=== PATIENT | female | born 1995 | race Caucasian/White ===

== ENCOUNTER 2024-07-02 00:23 | Emergency (ER) | payer SELFPAY ==
--- NOTE | ~2024-07-02 | CT_ITS ---
Non-contrast CT scan of the Abdomen and Pelvis Clinical indication: Right flank pain Technique: 2.5 mm axial scans were obtained through the abdomen and pelvis without intravenous or or al contrast. Dose reduction technique was used on this scan by utilizing automated exposure control a nd iterative reconstruction technique. The dose-length product (DLP) was 291.79 mGy-cm. Findings: Images through the lung bases reveal no abnormalities. There are small bilateral nonobstructing renal stones, largest in the right kidney measuring 2 mm. Th ere is a 3.5 mm right UVJ stone, with mild right hydroureteronephrosis. No left ureteral stone or lef t hydronephrosis. The liver, spleen, pancreas, and adrenals appear normal.. Cholecystectomy clips are present. There is no aortic aneurysm. There is no evidence of bowel obstruction. Images through the pelvis were performed. There is no evidence of ascites or lymphadenopathy. Urinary bladder otherwise unremarkable. No pelvic mass seen. Impression: 3.5 mm right UVJ stone, with mild right hydroureteronephrosis. Additional small bilateral nonobstructing renal stones, as above. Reviewed, dictated and finalized at location M. Impression: 3.5 mm right UVJ stone, with mild right hydroureteronephrosis. Additional small bilateral nonobstructing renal stones, as above.
[2024-07-02 00:26] VITALS: BP 190/87; PULSE 58; RESP 18; TEMP 36.9; O2SAT 98
[2024-07-02 01:12] LABS: Basophils Percent Auto 0.3 % (0.2-1.2); Eosinophils Absolute Auto 0.1 K/mm3 (0-0.3); Hematocrit 42.3 % (37.0-47.0); Immature Granulocyte Absolute 0.05 K/mm3 (0.00-0.031); Immature Granulocyte Percent A 0.4 % (0-0.5); Lymphocytes Percent Auto 18.2 % (18.3-44.2); Mean Corpuscular HGB Conc 35.5 g/dl (32-36); Mean Corpuscular Hemoglobin 32.5 pg (26-34); Mean Corpuscular Volume 91.8 fl (80-100); Mean Platelet Volume 10.5 fl (7.4-10.4); Monocytes Absolute Auto 0.9 K/mm3 (0.1-0.6); Monocytes Percent Auto 6.1 % (2.6-8.5); Neutrophils Absolute Auto 10.6 K/mm3 (1.3-6.7); Platelet Count Result 315 k/mm3 (150-375); Red Blood Count 4.61 M/mm3 (4.2-5.4); Red Cell Distribution Width 12.9 % (11.5-14.5); White Blood Count 14.3 K/mm3 (4.5-10.0)
[2024-07-02 01:24] LABS: Alanine Aminotransferase 63 U/L (6-35); Albumin Level 4.3 g/dL (3.5-5.1); Alkaline Phosphatase 67 U/L (38-126); Anion Gap 12 mmol/L (4-12); Aspartate Amino Transferase 36 U/L (14-36); Bilirubin,Total 0.7 mg/dL (0.2-1.3); Blood Urea Nitrogen 9 mg/dL (7-17); Carbon Dioxide 22 mmol/L (22-30); Chloride 101 mmol/L (98-107); Estimated CRCL calculation 91 ml/min; Estimated Glomerular Filt Rate > 60; Glucose 139 mg/dL (65-110); Potassium 3.6 mmol/L (3.4-5.0); Sodium 135 mmol/L (137-145)
[2024-07-02] MEDS: ONDANSETRON INJ 4 MG/2 ML VIAL IV PUSH (01:31)
[2024-07-02] MEDS: MORPHINE SULFATE (*CRX) 4 MG/ML INJ IV PUSH (01:32)
[2024-07-02] MEDS: SODIUM CHLORIDE 0.9% IV 1,000 ML 999 ML IV CONT (01:33)
--- NOTE | 2024-07-02 01:34 | PC.NURSE ---
Patient ripped out IV due to pain.
--- NOTE | 2024-07-02 01:44 | ED.BACK ---
HPI - Back Pain/Injury General Chief Complaint: Back Pain/Injury <JENA Day Last Filed: 07/02/24 02:35> Stated Complaint: back pain <JENA Day Last Filed: 07/02/24 02:35> Time Seen by Provider: 07/02/24 01:22 <JENA Day Last Filed: 07/02/24 02:35> Source: patient <JENA Day Last Filed: 07/02/24 02:35> Mode of arrival: ambulatory <JENA Day Last Filed: 07/02/24 02:35> Limitations: no limitations <JENA Day Last Filed: 07/02/24 02:35> History of Present Illness HPI Narrative: Patient is a 29-year-old female who presents the ED with report of right flank pain. Patient reports pain began earlier today but has progressively worsened throughout the day. She states she is unable to bear the pain at this time. She has not taken anything for the pain. Pain does radiate around to right lower abdomen slightly. Denies history of similar pain. Denies history of kidney stones. Has had previous cholecystectomy. Reports nausea, vomiting. Denies fevers, dysuria, hematuria. <JENA Day Last Filed: 07/02/24 02:35> Related Data Allergies/Adverse Reactions: Allergies Allergy/AdvReac Type Severity Reaction Status Date / Time ciprofloxacin Allergy Unknown Verified 09/29/16 14:58 <JENA Day Last Filed: 07/02/24 02:35> Review of Systems Review of Systems: All systems reviewed & are unremarkable except as noted in HPI. <JENA Day Last Filed: 07/02/24 02:35> All systems reviewed & are unremarkable except as noted in HPI and below <JENA Day Last Filed: 07/02/24 02:35> [facility] Family History Family History: Family History Mother Asthma <Sushma Bojorquez PA-C - Last Filed: 07/02/24 02:35> Social History Social History: Social History Smoking status: Former smoker Alcohol intake: current <Sushma Bojorquez PA-C - Last Filed: 07/02/24 02:35> Exam Narrative: GENERAL: Uncomfortable appearing, rocking back and forth on ED stretcher, unable to sit still, moaning loading. Mild acute distress d/t pain. HEAD: Normocephalic, atraumatic. RESPIRATORY: Airway patent, respirations nonlabored. Clear to auscultation bilaterally, no rales, rhonchi, wheezing. CARDIOVASCULAR: Regular rate and rhythm without murmurs, rubs, or gallops. ABDOMINAL: Soft, TTP throughout R mid abdomen/lower, nondistended. Normoactive BS. +CVA tenderness on R MUSCULOSKELETAL: Moves all extremities. No gross deformities. SKIN: Warm, dry, normal color. NEURO: A&O X3. Speech clear. Cranial nerves II-XII grossly intact. Steady gait. No ataxic movements. PSYCHIATRIC: Tearful, anxious. Normal interaction. <Sushma Bojorquez PA-C - Last Filed: 07/02/24 02:35> Course Course Emergency Course: Zfemi: Patient signed out to me pending completion CT scan. On re-evaluation the patient is still moaning and rolling back and forth in the bed. Opiates were ineffective. Patient given Haldol with improvement. CT returned with a 3 mm stone at the UVJ. white count slightly elevated at 14.3 urine with greater than 100 rbc's and 6-10 white blood cells but negative nitrites leuk esterase or any bacteria. Patient will be discharged to follow-up with urology. Given appropriate medications. <Harley Franco MD - Last Filed: 07/02/24 04:34> Vital Signs Vital signs: Vital Signs Temperature 98.5 F 07/02/24 00:26 Pulse Rate 58 L 07/02/24 00:26 Respiratory Rate 18 07/02/24 00:26 Blood Pressure 190/87 H 07/02/24 00:26 Pulse Oximetry 98 07/02/24 00:26 Oxygen Delivery Room Air 07/02/24 00:26 Temperature 98.5 F 07/02/24 00:26 Pulse Rate 52 L 07/02/24 04:11 Respiratory Rate
[2024-07-02] MEDS: HYDROmorphone HCL INJ (*CRX) 1 MG/ML SYR 0.5 MG IV PUSH (02:12)
[2024-07-02] MEDS: HALOPERIDOL LACTATE 5 MG/ML VIAL IM (02:59)
[2024-07-02 03:09] LABS: Bacteria Urine None Seen /hpf; Non Pathogenic Casts 0-2; RBC Urine >100 /hpf (0-2); Squamous Epithelial Cell Urine Occasional /hpf (Few)
[2024-07-02 03:15] LABS: BEDSIDEPREGUCG Negative
[2024-07-02 03:26] LABS: Add Urine Microscopic? YES; Appearance Urine Sl Cloudy (Clear); Blood Urine 3+ (Negative); Color Urine Yellow (Yellow); Glucose Urine UA Negative (Negative); Ketones Urine 4+ mg/dL (Negative); Protein Urine 2+ mg/dL (Negative); Specific Grav Ur >= 1.030 (1.001-1.035)
[2024-07-02 03:27] LABS: Amphetamine Screen Urine Negative (Negative); Barbiturate Screen Urine Negative (Negative); Benzodiazepines Screen Urine Negative (Negative); Bilirubin Urine 2+ (Negative); Cannabinoid Screen Urine Positive (Negative); Cocaine Screen Urine Positive (Negative); Leukocyte Esterase Ur Negative LEU/UL (Negative); Methadone Screen Urine Negative (Negative); Nitrate Urine Negative (Negative); Opiate Screen Urine Positive (Negative); Phencyclidine Screen Urine Negative (Negative); Urobilinogen Urine 0.2 mg/dL (<2.0)
[2024-07-02 04:11] VITALS: BP 128/78; PULSE 52; RESP 15; O2SAT 98
[2024-07-02] MEDS: KETOROLAC 15 MG/ML VIAL (*BKC) IV PUSH (04:35)
[2024-07-02 04:57] VITALS: BP 126/80; PULSE 57; RESP 15; O2SAT 100
== END 2024-07-02 04:57 | disposition home or self-care (01) ==
LOC: ANHED 02:34
PROVIDERS: Emergency Medicine; Emergency Provider Physician Assistant
DX: R10.9 Unspecified abdominal pain (principal)
CPT/HCPCS: 36415; 74176; 80053; 80307; 81001; 81025; 85025; 87086; 96361; 96372; 96374; 96375; 99284; J1170; J1630; J1885; J2270; J2405; J7030

== ENCOUNTER 2025-02-10 08:34 | Emergency (ER) | payer SELFPAY ==
--- NOTE | ~2025-02-10 | XR_ITS ---
XR chest 1V portable Ordering provider: Harley Franco MD History: 29 years Female with . R flank pain, n/v/d . Comparison: None. FINDINGS: MEDIASTINUM: The cardiac silhouette is not enlarged. LUNGS: No infiltrates, effusions or pneumothorax. OTHER: No free air under the diaphragm. IMPRESSION: No acute cardiopulmonary pathology Reviewed, dictated and finalized at location A.
--- NOTE | ~2025-02-10 | CT_ITS ---
CT abdomen pelvis wo con Ordering provider: Harley Franco MD History: 29 years Female with . R flank pain, hx of stones . Comparison: July 02, 2024 Technique: CT abdomen and pelvis without IV and without oral contrast. Automated exposure control and iterative reconstruction technique were employed. The dose-length product was 212.35 mGy-cm. Findings: VISUALIZED LOWER CHEST: Normal. UPPER ABDOMINAL ORGANS: Liver: Normal. Hypodensity seen in the right lobe of the liver adjacent to the interlobar fissure unc hanged. Gallbladder: Status post cholecystectomy. Spleen: Normal. Stomach/duodenum: Normal. Pancreas: Normal. Adrenals: Normal. Kidneys: Right hydronephrotic changes. Right ureterovesical junction stone measuring 4 mm is noted wi th dilated right ureter. Tiny stone in the right kidney lower pole. PELVIC ORGANS: The bladder is underfilled. BOWEL AND MESENTERY: Colon: No evidence of diverticulitis.. No evidence of appendicitis. Small Bowel: Normal. No obstruction. Peritoneum/mesentery: No free air or free fluid. No mesenteric lymphadenopathy. RETROPERITONEUM: Normal aorta. No retroperitoneal lymphadenopathy. MUSCULOSKELETAL: Superficial soft tissues: The superficial soft tissues are normal. Bones: Normal spine. IMPRESSION: 1. Stone in the right ureterovesical junction measuring 4 mm. Right hydronephrotic changes. Tiny sto ne in the right kidney lower pole. 2. No evidence of appendicitis, diverticulitis or intestinal obstruction. Reviewed, dictated and finalized at location A. IMPRESSION: 1. Stone in the right ureterovesical junction measuring 4 mm. Right hydronephr otic changes. Tiny stone in the right kidney lower pole. 2. No evidence of appendicitis, diverticulitis or intestinal obstruction.
--- OUTSIDE RECORDS SUMMARY | 2025-02-10 08:36 | XMS_ITS | Data Portability ---
Author Organization [facility], [facility] Address [address] [place] [address] Assessment No assessment recorded. Plan of Treatment Reminders Order Date Submit Date Provider Last Modified By Organization Details Last Modified Time Details Appointments None recorded. Lab None recorded. Referral None recorded. Procedures None recorded. Surgeries None recorded. Imaging None recorded. Medication Orders hydrocortis one 2.5 % topical cream 2021 022 POTRERO [id number], [address], [place], [id number], 2 15:10:46 ondansetron 4 mg disintegrat ing tablet 2018 019 [email or web address] [facility]13971, [address], [place], [id number], 9 14:41:35 omeprazole 20 mg capsule,del ayed release 2018 019 [email or web address] [facility] #57369, [address], [place], [id number], 9 14:41:32 ranitidine 150 mg capsule 2018 019 [email or web address] [facility]47315, [address], [place], [id number], 9 14:41:40 cephalexin 500 mg capsule [address] [facility]38973, [address], [place], [id number], 9 13:05:33 prednisone 20 mg tablet [address] [facility]92619, [address], [place], [id number], 9 13:05:30 naproxen 500 mg tablet 2017 018 [email or web address] [facility] #35564, [address], [place], [id number], 9 13:39:03 Patient TargetsNo targets recorded. Patient Instructions Encounter Date Encounter Id Patient Instructions Last Modified By Organization Details Last Modified Time 09/23/2018 [id number] Screening, Brief Intervention, and Referral to Treatment* gcameron Not available 09/24/2018 00:09:07 nutrition gcameron Not available 2017 00:09:07 exercise gcameron Not available 2017 00:09:07 A healthy lifest yle: care instructions gcameron Not available 09/24/2018 00:09:07 03/19/2019 [id number] Screening, Brief Intervention, and Referral to Treatment* pboudet Not available 03/19/2019 14:00:04 nutrition pboudet Not available 2018 14:00:04 exercise pboudet Not available 2018 14:00:04 A healthy lifest yle: care instructions pboudet Not available 03/19/2019 14:00:04 Take meds as directed. Drink plenty of fluids. Follow if symptoms do not improve in 3-4 days. pboudet Not available 03/19/2019 13:58:01 07/15/2019 [id number] nausea and vomit ing: care instructions schristopher 9 Not available 07/15/2019 13:56:52 gastroesophageal reflux disease (GERD): care instructions schristopher 9 Not available 07/15/2019 13:55:03 nutrition schristopher 9 Not available 07/15/2019 13:36:34 exercise schristopher 9 Not available 07/15/2019 13:36:34 un estilo de vid a fide: instrucciones de cuidado - [A healthy lifestyle: care instructions] schristopher 9 Not available 07/15/2019 13:36:34 A healthy lifest yle: care instructions schristopher 9 Not available 07/15/2019 13:36:34 Quitting Tobacco : Care Instructions schristopher 9 Not available 07/15/2019 13:36:34 deciding about u sing medicines to quit smoking schristopher 9 Not available 07/15/2019 13:36:34 Learning About Benefits of Quitting Smoking schristopher 9 Not available 07/15/2019 13:36:34 10/30/2019 [id number] Screening, Brief Intervention, and Referral to Treatment* Not available 10/30/2019 15:19:51 nutrition Not available 2018 15:19:51 exercise Not available 2018 15:19:51 A healthy lifest yle: care instructions Not available 10/30/2019 15:19:51 F/U with PCP in 3-4 days if symptoms do not improve or fever develops. Not available 10/30/2019 15:19:50 03/23/2022 [id number] Screening, Brief Intervention, and Referral to Treatment* Not available 03/23/2022 14:59:27 dermatitis: care instructions Not available 03/23/2022 15:10:40 Reason for Referral None Reported. Results Created Date Observation Date Name Description Value Unit Range Abnormal Flag Note LastModifiedBy Organization Detail LastModifiedTime 03/19/20 19 03/19/2019 Juan Manuel romero, Brief Inter venti on, and Refer ral to Treat ment* In the past 2 weeks, have you felt nervous, anxious, or on edge? Not at all Not Available [facility] [address] [place], [address], 03/19/2019 13:43:44 03/19/20 19 03/19/2019 Juan Manuel romero, Brief Inter venti on, and Refer ral to Treat ment* In the past 2 weeks, have you been unable to stop or control worrying? Not at all Not Available [facility] [address] [place], [address], 03/19/2019 13:43:44 03/19/20 19 03/19/2019 Juan Manuel romero, Brief Inter venti on, and Refer ral to Treat ment* How many times in the last year have you used drugs/prescr iption meds for non-medical reasons? None Not Available [facility] [address], [address], 03/19/2019 13:43:44 03/19/20 19 03/19/2019 Juan Manuel romero, Brief Inter venti on, and Refer ral to Treat ment* How many times in the past year have you had 4 drinks in 1 day? 0 Not Available [facility] [address] [place], [address], 03/19/2019 13:43:44 03/19/20 19 03/19/2019 Juan Manuel romero, Brief Inter venti on, and Refer ral to Treat ment* Positive or Negative? negati ve Not Available [facility] [address] [place], [address], 03/19/2019 13:43:44 03/19/20 19 03/19/2019 Juan Manuel romero, Brief Inter venti on, and Refer ral to Treat ment* BH Referral? Not needed at this time Not Available [facility] [address] [place], [address], 03/19/2019 13:43:44 09/23/20 18 09/23/2018 Juan Manuel romero, Brief Inter venti on, and Refer ral to Treat ment* In the past 2 weeks, have you felt nervous, anxious, or on edge? Not at all Not Available [facility] [address] [place], [address], 09/23/2018 18:52:35 09/23/20 18 09/23/2018 Screcarlo marteg, Brief Inter venti on, and Refer ral to Treat ment* In the past 2 weeks, have you been unable to stop or control worrying? Not at all Not Available [facility] [address] [place], [address], 09/23/2018 18:52:35 09/23/20 18 09/23/2018 Screcarlo romero, Brief Inter venti on, and Refer ral to Treat ment* How many times in the last year have you used drugs/prescr iption meds for non-medical reasons? 1 or more Not Available [facility] [address] [place], [address], 09/23/2018 18:52:35 09/23/20 18 09/23/2018 Juan Manuel romero, Brief Inter venti on, and Refer ral to Treat ment* How many times in the past year have you had 4 drinks in 1 day? 2 Not Available [facility] [address] [place], [address], 09/23/2018 18:52:35 09/23/20 18 09/23/2018 Juan Manuel romero, Brief Inter venti on, and Refer ral to Treat ment* Positive or Negative? positi ve Not Available [facility] [address] [place], [address], 09/23/2018 18:52:35 09/23/20 18 09/23/2018 Juan Manuel romero, Brief Inter venti on, and Refer ral to Treat ment* BH Referral? Yes, but patien t denied Not Available [facility] [address] [place], [address], 09/23/2018 18:52:35 10/30/20 19 10/30/2019 Juan Manuel romero, Brief Inter venti on, and Refer ral to Treat ment* In the past 2 weeks, have you felt nervous, anxious, or on edge? Not at all Not Available [facility] [address], [address], 10/30/2019 14:43:38 10/30/20 19 10/30/2019 Juan Manuel romero, Brief Inter venti on, and Refer ral to Treat ment* In the past 2 weeks, have you been unable to stop or control worrying? Not at all Not Available [facility] [address] [place], [address], 10/30/2019 14:43:38 10/30/20 19 10/30/2019 Juan Manuel romero, Brief Inter venti on, and Refer ral to Treat ment* How many times in the last year have you used drugs/prescr iption meds for non-medical reasons? None Not Available [facility] [address] [place], [address], 10/30/2019 14:43:38 10/30/20 19 10/30/2019 Juan Manuel romero, Brief Inter venti on, and Refer ral to Treat ment* How many times in the past year have you had 4 drinks in 1 day? 0 Not Available [facility] [address] [place], [address], 10/30/2019 14:43:38 10/30/20 19 10/30/2019 Juan Manuel romero, Brief Inter venti on, and Refer ral to Treat ment* Positive or Negative? negati ve Not Available [facility] [address] [place], [address], 10/30/2019 14:43:38 10/30/20 19 10/30/2019 Juan Manuel romero, Brief Inter venti on, and Refer ral to Treat ment* BH Referral? Not needed at this time Not Available [facility] [address] [place], [address], 10/30/2019 14:43:38 03/23/20 22 03/23/2022 Juan Manuel romero, Brief Inter venti on, and Refer ral to Treat ment* In the past 2 weeks, have you felt nervous, anxious, or on edge? Not at all Not Available [facility] [address] [place], [address], 03/23/2022 14:57:55 03/23/20 22 03/23/2022 Scree nick, Brief Inter venti on, and Refer ral to Treat ment* In the past 2 weeks, have you been unable to stop or control worrying? Not at all Not Available [place] [address] [place], [address], 03/23/2022 14:57:55 03/23/2003/23/2022 Screcarlo marteg, Brief Inter venti on, and Refer ral to Treat ment* How many times in the last year have you used drugs/prescr iption meds for non-medical reasons? None Not Available [place] [address] [address] [place], [address], 03/23/2022 14:57:55 03/23/20 22 03/23/2022 Screcarlo romero, Brief Inter venti on, and Refer ral to Treat ment* How many times in the past year have you had 4 drinks in 1 day? 0 Not Available [place] [address] [place], [address], 03/23/2022 14:57:55 03/23/20 22 03/23/2022 Juan Manuel marteg, Brief Inter venti on, and Refer ral to Treat ment* Positive or Negative? negati ve Not Available [place] [address] [place], [address], 03/23/2022 14:57:55 03/23/20 22 03/23/2022 Screcarlo marteg, Brief Inter venti on, and Refer ral to Treat ment* BH Referral? Not needed at this time Not Available [place] [address] [place], [address], 03/23/2022 14:57:55 Result Notes None recorded. Problems Name Problem SNOMED Code Status Onset Date Resolution Date Notes Provider Name and Address Organization Details Recorded Time Irritable bowel syndrome 63149721 Active 018 [facility] 8 18:51:16 Problem Notes None recorded. Procedures Surgical History Date Name Laterality Status Provider Name and Address Organization Details Recorded Time 01/19 Other completed Ivelisse Al TAMPER OPERATOR [facility] 9 13:42:00 10/31 [facility]astroduodenoscopy [facility] 9 13:42:42 10/31 Colonoscopy completed Ivelisse Al [facility] 9 13:42:31 Imaging Results None recorded. Procedure Notes None recorded. Medical Equipment None Reported. Allergies Allergen ID Allergen Name Allergen Category Reaction Reaction Severity Criticality Documentation Date Start Date Code Code System Note Provider Name and Address Organization Details Recorded Time 439219 ciproflox acin medicatio n headache Not available Not available 09/23/2018 2551 RxNorm [facility] 8 18:50:56 Medications Name Sig Start Date Stop Date Status Note LastModified by Organization Details LastModified Time amoxicillin 500 mg capsule 10/30 completed Not Available Not Available Not Available Mirena 21 mcg/24 hr (up to 8 years) 52 mg intrauterin e device Take by intrauter ine route. active Not Available Not Available No t Available prednisone 20 mg tablet Take 1 tablet every day by oral route as directed for 5 days. 07/15 completed Not Available Not Available Not Available famotidine 20 mg tablet 10/30 completed Not Available Not Available Not Available dicyclomine 20 mg tablet 10/30 completed Not Available Not Available Not Available cephalexin 500 mg capsule Take 1 capsule every 6 hours by oral route as directed for 7 days. 07/15 completed Not Available Not Available Not Available ranitidine 150 mg tablet 10/30 completed Not Available Not Available Not Available omeprazole 20 mg capsule,del ayed release Take 1 capsule every day by oral route for 30 days. 10/30 completed Not Available Not Available Not Available hydrocortis one 2.5 % topical cream APPLY THIN LAYER TOPICALLY TO THE AFFECTED AREA TWICE DAILY active Not Available Not Available No t Available ranitidine 150 mg capsule Take 1 capsule twice a day by oral route for 30 days. 10/30 completed Not Available Not Available Not Available ondansetron 4 mg disintegrat ing tablet Take 1 tablet every 8 hours by oral route as needed for 5 days. 10/30 completed Not Available Not Available Not Available naproxen 500 mg tablet Take 1 tablet twice a day by oral route. 03/19 completed Not Available Not Available Not Available metoclopram richi 10 mg tablet 10/30 completed Not Available Not Available Not Available amoxicillin 875 mg-potassiu m clavulanate 125 mg tablet 10/30 completed Not Available Not Available Not Available ID NOW COVID-19 Test Kit TEST DIRECTED TODAY active Not Available Not Available No t Available Vitals Date Recorded Body height Body mass index (BMI) Body weight Body temperature Respiratory rate Heart rate Oxygen saturation Oxygen saturation in Arterial blood by Pulse oximetry Systolic blood pressure Diastolic blood pressure Provider Name and Address Organization Details Last Updated DateTime 2 154.94 cm 20.7 kg/m2 68658.0 1 g 98.6 [degF] 16 /min 68 /min 98 % 98 % 101 mm[Hg] 64 mm[Hg] Marianne Montero [facility] 2 14:59:14 Date Recorded Body height Body mass index (BMI) Body weight Body temperature Heart rate Respiratory rate Systolic blood pressure Diastolic blood pressure Provider Name and Address Organization Details Last Updated DateTime 8 154.94 cm 18.2 kg/m2 22518.3 g 98.3 [degF] 58 /min 12 /min 107 mm[Hg] 67 mm[Hg] Anju Summers [facility] 8 18:50:23 Date Recorded Body height Body mass index (BMI) Body weight Body temperature Heart rate Respiratory rate Oxygen saturation Oxygen saturation in Arterial blood by Pulse oximetry Systolic blood pressure Diastolic blood pressure Provider Name and Address Organization Details Last Updated DateTime 9 154.94 cm 17.6 kg/m2 77347.4 9 g 98.4 [degF] 65 /min 14 /min 98 % 98 % 99 mm[Hg] 66 mm[Hg] Javi Melendez TAMPER OPERATOR [facility] 9 13:38:35 Date Recorded Body height Body mass index (BMI) Body weight Body temperature Heart rate Respiratory rate Systolic blood pressure Diastolic blood pressure Provider Name and Address Organization Details Last Updated DateTime 9 154.94 cm 18.4 kg/m2 86824.6 2 g 98.2 [degF] 79 /min 18 /min 109 mm[Hg] 62 mm[Hg] Isabela Lan TAMPER OPERATOR [facility] 9 13:08:34 Date Recorded Body height Body mass index (BMI) Body weight Body temperature Heart rate Respiratory rate Oxygen saturation Oxygen saturation in Arterial blood by Pulse oximetry Systolic blood pressure Diastolic blood pressure Provider Name and Address Organization Details Last Updated DateTime 9 154.94 cm 18.7 kg/m2 67552.6 4 g 98.2 [degF] 68 /min 16 /min 97 % 97 % 97 mm[Hg] 63 mm[Hg] Kelly Springer TAMPER OPERATOR [facility] 9 14:44:50 Social History Question Answer Notes LastModified by Organizat ion Details LastModified Time Tobacco Smoking Status Current Some Day Smoker [facility]1] 09/23/2018 18:51:36 What Is Your Level Of Alcohol Consumption? Occasional Information not available 03/23/2022 How Much Tobacco Do You Chew? None [email or web address] Information not available 10/30/2019 Which Illicit Or Recreational Drugs Have You Used? None [email or web address] Information not available 10/30/2019 Do You Or Have You Ever Used E-cigarettes Or Vape? Never Used Electronic Cigarettes [email or web address] Information not available 10/30/2019 What Was The Date Of Your Most Recent Tobacco Screening? 03/23/2022 Information not available 03/23/2022 Do You Or Have You Ever Used Smokeless Tobacco? Never Used Smokeless Tobacco [email or web address] Information not available 10/30/2019 How Much Tobacco Do You Smoke? 0.25 PPD Occasional Smoker Information not available 10/30/2019 Do You Use Any Illicit Or Recreational Drugs? No Information not available 03/23/2022 Has Tobacco Cessation Counseling Been Provided? No Denied [email or web address] Information not available 03/19/2019 How Many Years Have You Smoked Tobacco? 4 [email or web address] Information not available 03/19/2019 Sex: Female Functional Status None recorded. Mental Status None recorded. Family History Relationship Description Onset Age of this Age Resolved Age Notes LastModified by Organization Details LastModified Time Father Heart disease [email or web address] Not available 03/01 13:39:49 Medical History Condition Response Allergies (Food, seasonal, environmental ) N Coronary Artery Disease N Other Y Gout N Hyperthyroidism N Breast Cancer N Blood Transfusion N Dermatologic Disorders N COPD N Hypothyroidism N Developmental or Behavioral Disorders N Defects or Inherited Disease N Gestational Diabetes N History of STI N Deep Vein Thrombosis N Polycystic ovary syndrome N Anxiety Disorder N Meniere's disease N Autoimmune disease N Muscle, Joint, or Bone Problems N Obesity N Vision or Eye Problems N Head Injury/Concussion N Infertility N Varicosities N Stroke N Neurologic/Epilepsy N Endometriosis N Bladder or Kidney Problems N Back Injury N High Cholesterol N Psychiatric/Mental Health Condition N Headaches N Fibromyalgia N Kidney Disease N Ear or Hearing Problems N Hospitalizations N Hematologic disorders/Anemia N GI Problems N Acne N ADD/ADHD N Eating Disorder N Anemia N MRSA exposure N Brain Injury N Heart Attack ([place]) N Ovarian Cancer N Diabetes N Bedwetting N Hepatitis/Liver Disease N Bleeding Disorder N Tuberculosis N AIDS/HIV N Congestive Heart Failure (CHF) N Diverticulitis N Abuse/Domestic Violence N Asthma N Trauma/Violence N Substance Abuse N Depression/ depression N Heart Disease N Pulmonary Embolism N Pre-Eclampsia N Hypertension N Osteoporosis N Gynecological History Statement/Question Response Date of LMP 10/28/2019 Obstetrics History GPAL:G 0 P 0 0 0 0 Past Encounters Encounter ID Performer Location Encounter Start Date Encounter Closed Date Diagnosis/Indication Diagnosis SNOMED-CT Code Diagnosis ICD10 Code Diagnosis Note [id number] Shawn Lee [facility] [address] [facility] [place] [address] 09/23/2018 18:39:16 09/23/2018 19:15:07 Screening for disorder 358086155 Z13.9 Body mass index less than 20 972370146 Z68.1 Pain in left arm 3692788 00 M79.602 discussed options and suggested trial of Naproxen 500 mg bid w food for next 7-10 days, intermitte nt ice applicatio n to area.. avoid immobiliza tion but also avoid stressing area w extension activities . advised pt to establish with PCP but also suggested may wish to pursue [facility] urgent care Tuesday as has imaging and ready acces to ortho referrals. pt indicates she will probably do both and establish but also follow up with [facility]. no xray ordered as seems to be tendon issue [id number] Birdie Vogttamika [facility] [address] [facility] [place] [address] 03/19/2019 13:31:05 03/19/2019 14:00:02 Screening for disorder 381632248 Z13.9 Body mass index less than 20 241355420 Z68.1 Dietary bigg giles surveillance 184985309 Z71.3 Exercises education, guidance, and counseling 403323636 Z71.82 Impetigo 71524014 L01.00 Atopic dermatitis 687333 01 L20.9 [id number] Brianda esquivel [facility] Day [address] [facility] [place] [address] 07/15/2019 12:54:00 07/15/2019 13:58:45 Body mass index less than 20 767851558 Z68.1 Discussed weight management . Encouraged to increase physical activity (at least 30 minutes 5 days a week). Encouraged a well-rishi shannan healthy diet. Increase caloric intake. Can drink ensure or carnation instant breakfast for nutritiona l support. Dietary bigg giles surveillance 342501692 Z71.3 Exercises education, guidance, and counseling 060412429 Z71.82 Tobacco us e cessation education 873278306 Z71.6 Discussed importance of smoking cessation. Educated that there are smoking cessation assistance therapies, and [facility] provides behavioral services. Patient refuses smoking cessation at this time. f/u with pcp Gastroesop hageal reflux disease 128796339 K21.9 Continue to take all medication s as prescribed . Avoid caffeine, spicy foods, chocolate, milk towards evening, fatty foods, and tobacco use. Avoid eating 2-3 hours before bedtime. After eating stay at least a 30 degree angle. Smoking cessation encouraged . f/u with pcp in 2-3 days for lack of improvemen t or sooner for worsening symptoms. Nausea and vomiting 1693 2000 R11.2 likely secondary to GERD [id number] Kinza Jolly APRN [facility] Day [address] [place] [address] 10/30/2019 14:32:16 10/30/2019 15:23:07 Body mass index less than 20 711355183 Z68.1 Dietary ma nagement surveillance 854029718 Z71.3 Exercises education, guidance, and counseling 746319767 Z71.82 Screening for disorder 527351403 Z13.9 Headache 39354849 R51 history of skull tumor. patient to have neuro follow up on 11/01/2019. discussed symptom management with patient. Continue to use as needed medication If headaches begin occurring more frequently , worsen, or change notify PCP Please keep a headache journal. Avoid caffeine, and stimulants . Okay to use Tylenol, and NSAIDS PRN for headaches. Avoid narcotics because they can cause rebound headaches. f/u with pcp 2-3 days for lack of improvemen t sooner if worsening symptoms. go to nearest ER if fever > 101 F, neck stiffness, thundercla p present, vision changes, slurred speech, or weakness. [id number] Kinza Jolly APRN [facility] Day [address] [place] [address] 03/23/2022 14:51:29 03/23/2022 15:19:51 Screening for disorder 616478795 Z13.9 Contact dermatitis 99097 004 L25.9 Erythema, pruritus, (bullae, papules, vesicles) likely secondary to contact dermatitis . Educated patient/pa rent that this is self-limit ing illness that requires conservati ve management . Avoid triggers and irritants. Tepid, and colloidal oatmeal baths to help with pruritus. Take benadryl as needed. May benefit from OTC allergy medication (Claritin, Zyrtec). Hydrocorti sone cream PRN for pruritus and erythema. Emollients (Eucerin, aquaphor) PRN for eruptions. Calamine lotion PRN for pruritus. Can use a moisture barrier PRN (zinc oxide). If any tongue swelling, shortness of breath, fever, or feeling like throat is closing go to nearest ER. If rash is not getting better please notify pcp. f/u with pcp in 1-2 days. Health Concerns Section Related Observation LastModified by Organization Detai ls LastModified Time None Recorded Concern Status LastModified by Organization Details LastModified Time None Recorded Advance Directives Directive None Recorded Payers Encounter Date Sequence Insurance Name Policy Number Policy Cohen Covered Member ID Cohen Member ID Guarantor Name 09/23/2018 1 [employer] - DOS PRIOR TO 21 - [place] [employer] [id number] Eimly Stevens [id number] Emily Stevens 03/19/2019 1 [employer] - DOS PRIOR TO 21 - [place] [employer] [id number] Emily Stevens [id number] Emily Stevens 07/15/2019 1 [employer] - [employer] PRIOR TO 21 - [place] [employer] [id number] Emily Stevens [id number] Emily Stevens 10/30/2019 1 [employer] - DOS PRIOR TO 21 - [place] [id number] Emily Stevens [id number] Emily Stevens 03/23/2022 1 [employer] - [employer] - OPEN ACCESS [id number] Emily Stevens [id number] Emily Stevens Notes Date Note Type Note Provider Name and Address Organization Details Recorded Time 09/23/2018 text/html pain left elbow area of distal extensors for past 3-4 days. started after doing high reps of overhead extension exercises at gym. worse today after working at [employer] and doing extension activies with arms. denies known trauma. 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 states right elbow frequently causes pain. denies paresthesia or loss of motor function Shawn Lee [facility] 09/23/2018 19:32:49 03/19/2019 text/html Patient reports having bumps to the lower lip for one day. Very itchy and feels bumpy. no fever .no other symptims.No new products or foods. Birdie Contreras [facility] 03/19/2019 14:05:45 07/15/2019 text/html NauseaReported bypatient.Locationep igastric Quality:worsening Severity:moderate Durationpresent for 2-4 weeks (2 weeks) Onset/Timing:gradual onset; daily; still present Contextno drug/alcohol abuse; no one else with similar symptoms; no recent camping; no recent picnic; no possible food sources; no well water; smoker LMP 01/29/19 has mirena. lesbian Alleviating factors:ranitidine started 2 weeks ago helped approximately 50 % Aggravating factors:eating (worse in am) Associated Symptoms:no fever; no cholesterol issues; no heartburn; no fatigue; no weakness; no weight loss; no weight gain; no muscle aches; no muscle weakness; no nutrient deficiency;abdominal pain(epigastric pain);excess gas(belching);diarrh ea;vomiting(x 3);dry heaves; decreased appetite Patient is here today for nausea x 2 weeks Brianda Jason [facility], [facility] 07/15/2019 13:58:06 10/30/2019 text/html patient arrives today with 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 patient only takes ibuprofen for headaches without relief. patient reports she has told neuro about her headaches and she just has check ups every 6 months and no management for headaches. patient sees neuro on 11/01/2019. patient reports the light makes her headaches worse. patient requesting a strong pain medication for headaches. patient denies nausea and vomiting. patient reports her headaches are worse during high allergy seasons. patient notices a difference with her headaches in change in weather. Kinza Jolly, LOG COOKER [address] [place] [address], [phone], [facility] 10/30/2019 15:21:58 03/23/2022 text/html General Rash/Ski n LesionReported bypatient.Location:f sharan; arm; hands Quality:not painful;itchy;single Severity:mild Duration:has noted for <1 week Onset/Timing:abrupt onset Context:no new detergents or skin products; no one else with similar rash Alleviating factors:nothing gives relief Aggravating factors:nothing makes it worse Associated Symptoms:no fever; no cold symptoms; no nausea; no vomiting; no diarrhea; no urinary symptoms patient arrives today with mild rash concern for allergic reaction Kinza Jolly APRN [address] [place] [address], [phone], [facility] 03/23/2022 15:12:00 OBGyn Episode No OBEpisode recorded.
--- OUTSIDE RECORDS SUMMARY | 2025-02-10 08:37 | XMS_ITS | Data Portability ---
Author Organization [facility] MADHUTiffanie Delarosa Address [address] [facility] [place] [address] Care Team Providers Care Haz Tech Name Role Phone MIYA REESE Primary Care Provider Unavailabl e Assessment No assessment recorded. Plan of Treatment Reminders Order Date Submit Date Provider Last Modified By Organization Details Last Modified Time Details Appointments None recorded. Lab vaginal pathogens panel, JAKY+probe, vaginal fluid 2023 024 [facility], [address] [place] [address], [facility] [address], [place], [address], 4 06:15:46 HIV 1 + 2, meaningful use set 2023 024 [facility], [address] [place] [address], [address], [place], [address], 4 08:26:25 hsv (1+2) igg, serum 2023 024 [facility], [address] [place] [address], [address], [place], [address], 4 08:26:24 RPR (rapid plasma reagin), serum 2023 024 [facility], [address] [place] [address], [address], [place], [address], 4 08:26:24 Referral None recorded. Procedures None recorded. Surgeries None recorded. Imaging None recorded. Medication Orders None recorded. Patient TargetsNo targets recorded. Patient Instructions Encounter Date Encounter Id Patient Instructions Last Modified By Organization Details Last Modified Time 12/20/2023 [id number] exposure to sexually transmitted infections: care instructions [email or web address] Not available 12/20/2023 15:28:38 A healthy lifestyle: care instructions [email or web address] Not available 12/20/2023 22:53:43 Plan of care has been discussed with patient including expected therapeutic benefits and potential side effects of prescribed medication and treatments. Patient verbalizes understanding and is in agreement with the plan of care. Patient was instructed to keep all scheduled appointments and contact the clinic for any additional problems. Not available 12/20/2023 22:51:40 Reason for Referral None Reported. Results Created Date Observation Date Name Description Value Unit Range Abnormal Flag Note LastModifiedBy Organization Detail LastModifiedTime 12/20/19 24 12/21/2023 HSV 1 AND 2 AB, IGG hsv 1 IgG, type spec <0.91 index 0.00-0 .90 Negat kirill <0.91 Equiv ocal 0.91 - 1.09 Posit kirill >1.09 Note: Negat kirill indic ates no antib odies detec jorge to HSV-1 . Equiv ocal may sugge st early infec tion. If clini altagracia appro priat e, retes t at later date. Posit kirill indic ates antib odies detec jorge to HSV-1 . Not Available [facility] ([facility]) [address] [facility], [place], [address], 12/21/2023 08:26:23 12/20/19 24 12/21/2023 HSV 1 AND 2 AB, IGG hsv 2 IgG, type spec <0.91 Negat kirill <0.91 Equiv ocal 0.91 - 1.09 Posit kirill >1.09 HSV-2 Antib zora Inter preta tion: Curre nt guide lines and recom menda tions do not recom mend routi ne scree nick for HSV-2 in asymp tomat ic indiv idual s, inclu ding those that are pregn ant. A negat kirill antib zora resul t indic ates no detec table antib odies to HSV-2 were found . If recen t expos ure is suspe cted, retes t in 4 to 6 weeks . Equiv ocal sampl es shoul d be retes jorge in 4 to 6 weeks . A posit kirill resul t indic ates the prese nce of detec table IgG antib zora to HSV-2 . FALSE POSIT KIRILL RESUL TS MAY OCCUR . Repea t testi ng, or testi ng by a diffe rent pushpa bates, may be indic ated in some setti ngs (e.g. patie nts with low likel ihood of HSV infec tion) . If clini altagracia appro priat e, retes t 4 to 6 weeks later . HSV-2 IgG antib zora testi ng resul ts shoul d be clini altagracia corre lated . Not Available [facility] ([facility]) [address] [facility], [place], [address], 12/21/2023 08:26:23 12/20/19 24 12/21/2023 RPR, RFX QN RPR/C ONFIR M TP RPR Non Reacti ve nonrea ctive Not Available [facility] ([facility]) [address] [facility], [place], [address], 12/21/2023 08:26:24 12/20/19 24 12/21/2023 HIV AB/P2 4 AG WITH REFLE X HIV Ab/P24 Ag screen Non Reacti ve nonrea ctive HIV Negat kirill HIV-1 /HIV- 2 antib odies and HIV-1 p24 antig en were NOT detec jorge. There is no labor atory evide nce of HIV infec tion. Not Available [facility] ([facility]) [address] [facility], [place], [address], 12/21/2023 08:26:25 12/20/19 24 12/21/2023 NUSWA B VAGIN ITIS PLUS (VG+) atopobium vaginae High - 2 score abnormal Not Available [facility] ([facility]) [address] [place], [address], 12/23/2023 06:15:46 12/20/19 24 12/21/2023 NUSWA B VAGIN ITIS PLUS (VG+) bvab 2 High - 2 score abnormal Not Available [facility] ([facility]) [address] [place], [address], 12/23/2023 06:15:46 12/20/19 24 12/21/2023 NUSWA B VAGIN ITIS PLUS (VG+) megasphaera 1 High - 2 score abnormal Calcu late total score by esthela g the 3 indiv idual bacte rial vagin osis (BV) marke r score s toget her. Total score is inter prete d as follo ws: Total score 0-1: Indic ates the absen ce of BV. Total score 2: Indet ermin ate for BV. Addit ional clini nadege data shoul d be evalu ated to estab kai a diagn osis. Total score 3-6: Indic ates the prese nce of BV. This test was devel oped and its perfo rmanc e rudy cteri stics deter mined by [facility]. It has not been clear ed or appro carlito by the Food and Drug Admin istra tion. Not Available [facility] ([facility]) [address] [place], [address], 12/23/2023 06:15:46 12/20/19 24 12/21/2023 NUA B VAGIN ITIS PLUS (VG+) lyndsey albicans, JAKY Negati ve negati ve Not Available [facility] ([facility]) [address] [place], [address], 12/23/2023 06:15:46 12/20/19 24 12/21/2023 NUSWA B VAGIN ITIS PLUS (VG+) lyndsey glabrata, JAKY Negati ve negati ve Not Available [facility] ([facility]) [address] [place], [address], 12/23/2023 06:15:46 12/20/19 24 12/22/2023 NUSWA B VAGIN ITIS PLUS (VG+) trich vag by JAKY Negati ve negati ve Not Available [facility] ([facility]) [address] [facility], [place], [address], 12/23/2023 06:15:46 12/20/19 24 12/22/2023 NUSWA B VAGIN ITIS PLUS (VG+) chlamydia trachomatis, JAKY Negati ve negati ve Not Available [facility] ([facility]) [address] [facility], [place], [address], 12/23/2023 06:15:46 12/20/19 24 12/22/2023 NUA B VAGIN ITIS PLUS (VG+) neisseria gonorrhoeae, JAKY Negati ve negati ve Not Available [facility] ([facility]) [address] [facility], [place], [address], 12/23/2023 06:15:46 Result Notes None recorded. Procedures Surgical History Date Name Laterality Status Provider Name and Address Organization Details Recorded Time cholecystectomy completed Katherine Lozano MA [facility] 12/20/2023 15:16:28 colonoscopy completed Katherine Lozano MA [facility] 12/20/2023 15:16:42 Imaging Results None recorded. Procedure Notes None recorded. Medical Equipment None Reported. Allergies Allergen ID Allergen Name Allergen Category Reaction Reaction Severity Criticality Documentation Date Start Date Code Code System Note Provider Name and Address Organization Details Recorded Time 960725 Cipro medicatio n Not available Not available Not available 12/20/2023 76854 3 RxNorm Not Available Not Available Not Available Medications Name Sig Start Date Stop Date Status Note LastModified by Organization Details LastModified Time amoxicillin 500 mg capsule TAKE 1 CAPSULE BY MOUTH EVERY 12 HOURS FOR 10 DAYS 12/20 completed Not Available Not Available Not Available prednisone 20 mg tablet TAKE 2 TABLETS BY MOUTH EVERY DAY FOR 5 DAYS 12/20 completed Not Available Not Available Not Available metronidazol e 500 mg tablet TAKE 1 TABLET BY MOUTH EVERY 12 HOURS FOR 7 DAYS active Not Available Not Available No t Available Vitals Date Recorded Body weight Body mass index (BMI) Body height Body temperature Respiratory rate Heart rate Oxygen saturation Oxygen saturation in Arterial blood by Pulse oximetry Systolic blood pressure Diastolic blood pressure Provider Name and Address Organization Details Last Updated DateTime 82504.2 1 g 29.6 kg/m2 154.94 cm 98.4 [degF] 17 /min 78 /min 99 % 99 % 124 mm[Hg] 48 mm[Hg] Katherine Lozano [place] [facility] [place] 15:12:48 Social History Question Answer Notes LastModified by Organizat ion Details LastModified Time Tobacco Smoking Status Never Smoker Katherine Lozano MA null, [place] [facility] 12/20/2023 15:15:08 Do You Have An Advance Directive? No Information n ot available 12/20/2023 What Is Your Level Of Alcohol Consumption? Occasional Information not available 12/20/2023 Are You Blind Or Do You Have Difficulty Seeing? No Information n ot available 12/20/2023 What Is Your Level Of Caffeine Consumption? Occasional Information not available 12/20/2023 In The 14 Days Before Symptom Onset, Have You Had Close Contact With A Laboratory-confirm ed COVID-19 While That Case Was Ill? No Information n ot available 12/20/2023 In The 14 Days Before Symptom Onset, Have You Had Close Contact With A Person Who Is Under Investigation For COVID-19 While That Person Was Ill? No Information not available 12/20/2023 Have You Been To An Area Known To Be High Risk For COVID-19? No Information not available 12/20/2023 Are You Currently Employed? Yes Information not available 12/20/2023 Are You Deaf Or Do You Have Serious Difficulty Hearing? No Information not available 12/20/2023 What Type Of Diet Are You Following? REGULAR Information n ot available 12/20/2023 Are There Any Guns Present In Your Home? No Information not available 12/20/2023 What Was The Date Of Your Most Recent Tobacco Screening? 12/20/2023 Information not available 12/20/2023 Do You Use Protection During Sex? No Information not available 12/20/2023 What Is Your Relationship Status? Single Information not available 12/20/2023 Do You Use Your Seat Belt Or Car Seat Routinely? Yes Information not available 12/20/2023 Are You Sexually Active? Yes Information not available 12/20/2023 Do You Have Smoke And Carbon Monoxide Detectors In Your Home? Yes Information not available 12/20/2023 Are You Passively Exposed To Smoke? No Information no t available 12/20/2023 Do You Feel Stressed (tense, Restless, Nervous, Or Anxious, Or Unable To Sleep At Night)? MC1393-7 Information not available 12/20/2023 Do You Use Any Illicit Or Recreational Drugs? No Information not available 12/20/2023 Do You Use Sunscreen Routinely? Yes Information not available 12/20/2023 Has Tobacco Cessation Counseling Been Provided? No Information not available 12/20/2023 Do You Or Have You Ever Used Any Other Forms Of Tobacco Or Nicotine? No Information not available 12/20/2023 Sex: Female Functional Status Question Answer Note LastModified by Organization D etails LastModified Time Are you able to care for yourself? Yes Information n ot available 12/20/2023 What is your exercise level? None Information not available 12/20/2023 Mental Status None recorded. Family History Nothing Reported. Medical History Condition Response Coronary Artery Disease N Other N High Blood Pressure N Atrial Fibrillation N Kidney or Bladder Problems N Thyroid Problems N Blood Clots N COPD N Depression N GI Problems Y Skin Problems N Eating Disorder N Anemia N Heart Attack ([place]) Y Anxiety Disorder N Diabetes N Muscle, Joint, or Bone Problems N Arthritis N Seizures/Epilepsy N Acid Reflux (GERD) N Cancer N Stroke N Asthma N Allergies N ADHD N Substance Abuse N High Cholesterol N Hepatitis N Liver Disease N Schizophrenia N Headaches N Heart Failure N Osteoporosis N Gynecological History Statement/Question Response Menses Monthly Y Duration of Flow (days) 7 Flow Moderate Date of LMP 12/15/2023 Frequency of Cycle (Q days) 28 Obstetrics History GPAL:G 0 P 0 0 0 0 Past Encounters Encounter ID Performer Location Encounter Start Date Encounter Closed Date Diagnosis/Indication Diagnosis SNOMED-CT Code Diagnosis ICD10 Code Diagnosis Note [id number] LORI DURHAM [address] IM [address] [facility] [place] [address] 12/20/2023 14:42:31 12/21/2023 09:44:06 Sexually transmitted infectious disease 7978932 A64 -Patient reports she needs to be tested for STDs due to potential exposure.- Patient declined pelvic exam today.-Pat ient would also like to be tested for HIV, syphillis, and HSV.-NEEDLE MOLDER provided safe sex instructio ns-Patient declined INFORMATION TECHNOLOGY OFFICER referral at this time.-Mariama ent declined assistance with control.-N P advised patient to avoid sexual encounters until test results are known.-NEEDLE MOLDER to call with results within next couple of days.-Mariama ent to f/u to establish care with this provider. Body mass index 25-29 - overweight 094923411 Z68.29 NEEDLE MOLDER discussed the importance of a well balanced diet and obtaining regular exercise. Health Concerns Section Related Observation LastModified by Organization Detai ls LastModified Time None Recorded Concern Status LastModified by Organization Details LastModified Time None Recorded Advance Directives Directive N: Payers Encounter Date Sequence Insurance Name Policy Number Policy Cohen Covered Member ID Cohen Member ID Guarantor Name 12/20/2023 1 *SELF PAY* As aleshia Stevens Notes Date Note Type Note Provider Name and Address Organization Details Recorded Time 12/20/2023 text/html Patient presents to the clinic with concerns for STD exposure.Patient reports she had abnormal vaginal odor at the end of her menstrual cycle (ended 12/15/23) and after she changed soaps. She also recently shaved which may have caused irritation.She has also become sexually active with a new partner and would like to check for any new STD.She reports all of her symptoms have resolved.Patient reports she is sexually active with a female partner, but she is not using any form of protection currently.She would like to be tested for HIV, HSV, and syphillis as well. [facility] Attn: Accounting,[address] [place], [address], [facility] 12/20/2023 22:54:16 OBGyn Episode No OBEpisode recorded.
--- OUTSIDE RECORDS SUMMARY | 2025-02-10 08:37 | XMS_ITS | Encounter Summary ---
Author Organization [facility] Address [address] [place] [address] Care Team Providers Care Burlap Worker Name Role Phone Yara Lipscomb MD Primary Care Pr ovidMolina Randall MD Primary Care Provider [phone] Encounter Details Date Type Department Care Team (Late st Contact Info) Description 10/21/2022 [place] Message Enc [facility] - [address] [place] [address] Nae Devlin NP Pap Smear results Social History Tobacco Use Types Packs/Day Years Used Date Smoking Tobacco: Some Days Cigarettes Smokeless Tobacco: Never Comments:smokes socially Alcohol Use Standard Drinks/Week Comments Yes 3.3 (1 standard drink = 0.6 oz p ure alcohol) PHQ-2 Answer Date Recorded PHQ-2 Score - If the patient scores above 3, please move on to questions 3-9 0 08/23/2022 Comments No Sex and Gender Information Value Date Recorded Sex Assigned at Not on file Legal Sex Female 12:16 PM CDT Gender Identity Not on file Sexual Orientation Not on file COVID-19 Exposure Response Date Recorded In the last 10 days, have yo u been in contact with someone who was confirmed or suspected to have Coronavirus/COVID-19? No / Unsure 10/18/2022 11:47 AM PAPER CAP MACHINE OPERATOR documented as of this encounter Plan of Treatment Not on file documented as of this encounter Visit Diagnoses Not on filedocumented in this encounter Care Teams Burlap Worker Relationship Specialty Start Date End Date Yara Lipscomb MD PCP - General FAMILY PRACTICE 08/20/22 04/03/23 Molina Cavazos MD [address] [address] PCP - General INTERNAL MEDICINE 04/04/23 documented as of this encounter
--- OUTSIDE RECORDS SUMMARY | 2025-02-10 08:37 | XMS_ITS | Clinical Summary ---
Author Organization [facility] Address [address] [place] [address] Care Team Providers Care Underwater Trapper Name Role Phone Molina Cavazos MD Primary Care Provider [phone] Allergies Active Allergy Reactions Criticality Noted Date Comments Ciprofloxacin Headache,Other (see comment) Low 12/30 headache Medications levonorgestrel (MIRENA, 52 MG,) 20 MCG/DAY IUD Mirena 20 mcg/24 hours (8 yrs) 52 mg intrauterine device Take by intrauterine route. Active busPIRone (BUSPAR) 5 MG tabletIndicatio ns:Anxiety Take 1 tablet (5 mg total) by mouth 2 (two) times daily. 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 Skull lesion 11/25/2016 Resolved Problems Problem Noted Date Diagnosed Date Resolved Date Hypokalemia 11/28/2018 10/18/2022 Overview (08/23/2022): Last Assessment & Plan: Results from last 7 days Lab Units 11/29/18 0546 11/28/18 1212 11/27/18 0516 POTASSIUM mmol/L 4.4 3.3* 3.8 K protocol K-DUR 40mEq Monitor with daily CMP Immunizations Immunization Administration Dates Next Due Dtap (Acel-Immune) 06/13/2002,02/12/1998 Dtp/Hib (Tetramune) 1997,1997 Hepatitis B Pediatric 1997,1997 Hib-Hepatitis B (Comvax) 02/12/1998 Influenza (Generic) 12/01/2017 Influenza Adult (Generic) 11/16/2020 MMR (MMRII) 07/18/2002,06/13/2002 Polio IPV (Ipol) 01/30/2003,06/13/2002 Polio Opv (Generic) 1997,1997 Family History Medical History Relation Comments Hyperlipidemia Brother 1 Hyperlipidemia Brother 2 Hyperlipidemia Father Hypertension Father Kidney Stones Father LA Father Asthma Mother No Known Problems Sister 1 No Known Problems Sister 2 Relation Status Comments Brother 1 Alive Brother 2 Alive Father Alive Mother Alive Sister 1 Alive Sister 2 Alive Social History Tobacco Use Types Packs/Day Years Used Date Smoking Tobacco: Some Days Cigarettes Smokeless Tobacco: Never Tobacco Cessation:Ready to Q uit: Yes; Counseling Given: Yes Comments:smokes socially Alcohol Use Standard Drinks/Week Comments [...] on file Sexual Orientation Not on file Last Filed Vital Signs Vital Sign Reading Time Taken Comments Blood Pressure 110/68 10/18/2022 11:58 AM SILVERWARE BUFFER Pulse 74 10/18/2022 11:58 AM SILVERWARE BUFFER Temperature 37.1 C (98.7 F) 10/18/2022 11:58 AM SILVERWARE BUFFER Respiratory Rate 16 10/18/2022 11:58 AM SILVERWARE BUFFER Oxygen Saturation 98% 10/18/2022 11:58 AM SILVERWARE BUFFER Inhaled Oxygen Concentration - - Weight 65.3 kg (144 lb) 10/18/2022 11:58 AM SILVERWARE BUFFER Height 156.2 cm (5' 1.5 ) 10/18/2022 11:58 AM CS T Body Mass Index 26.77 10/18/2022 11:58 AM SILVERWARE BUFFER Plan of Treatment Health Maintenance Due Date Last Done Comments Pneumococcal Vaccine: Pediatrics (0 to 5 Years) and At-Risk Patients (6 to 49 Years) (1 of 2 - PCV) 2003 DTaP, Tdap and Td Vaccines (3 - Tdap) 02/23/2016 06/13/2002, 02/12/1998, 1997, Additional history exists Annual Physical 10/18/2023 10/18/2022 COVID-19 Vaccine ( season) 2024 Cervical Cancer Screening Pap Smear (Age 21 to 29) Every 3 Years 10/18/2025 10/18/2022 Cervical Cancer Screening 10/18/2025 Hepatitis B Vaccines Completed 02/12/1998, 1997, 1997 Hepatitis C Completed 08/23/2022 HPV Vaccines Aged Out No longer eligi ble based on patient's age to complete this topic Meningococcal B Vaccine Aged Out No l onger eligible based on patient's age to complete this topic Meningococcal Vaccine Aged Out No hussain abdiaziz eligible based on patient's age to complete this topic RSV Immunizations Under 20 Months Aged Out No longer eligible based on patient's age to complete this topic Procedures Procedure Name Priority Date/Time Associated Diagnosis Comments CYTOPATH CERV/VAG THIN LAYER Routine 10/18/2022 7:49 AM SILVERWARE BUFFER HEPATITIS C ANTIBODY Routine 08/23/2022 12:04 PM CDT Need for hepatitis C screening test from Last 3 Months or Most Recently Relevant to Health Maintenance Results * Cytopath Cerv/Vag Thin Layer (10/18/2022 7:49 AM SILVERWARE BUFFER) THIN PREP PAP [address] [id number] Department of Pathology Pathology Report CERVICAL/VAGINAL PAP SMEAR REPORT Name: EMILY STEVENS Age: 4 1995 (Age: 27) Location: [facility] Sex: F Collected Date: 10/18/2022 [facility] #: [id number] Date Received: 10/20/2022 Date Reported: 10/20/2022 Provider: YARA LIPSCOMB MD INTERPRETATION ABNORMAL RESULT CERVICAL/ENDOCERVIC AL: SATISFACTORY FOR EVALUATION. ENDOCERVICAL/TRANSF ORMATION ZONE COMPONENT PRESENT. LOW GRADE SQUAMOUS INTRAEPITHELIAL LESION. Electronically Signed Out MALINI Wyatt MD (ASCP) CLINICAL HISTORY Z00.00 Z12.4 SCREENING PAP TEST ThinPrep Pap Test with HR HPV testing in patient > 21 years with ASC-US diagnosis. Date of Last Menstrual Period: UNKNOWN Menstrual Status: Irregular Regular SPECIMEN SUBMITTED CERVICAL/ENDOCERVIC AL Specimen Received:1 Thin Prep Vial, Image Assisted Pap (SMD) Please note: The Pap smear is not a diagnostic test. It is a screening test. Negative results on combined screening (Pap test and HPV-DNA) have a high negative predictive value (99.1-100 percent) for cervical cancer. The pap test is not effective in detecting cervical adenocarcinoma. [facility] 10/18/2022 7:49 AM SILVERWARE BUFFER 10/20/2022 7:49 AM SILVERWARE BUFFER Comment:CERVICAL/ENDOCERVICA L us Yara Lipscomb MD PATHOLOGY/CYTOLO GY ORDERABLES Final Result [facility] [address] [place] [address], * HEPATITIS C ANTIBODY (08/23/2022 12:04 PM CDT) HEPATITIS C AB NON-REACTI VE NON-REACT KIRILL 08/23/2022 11:12 PM CDT [facility] Comment: ANTIBODIES TO HCV NOT DETECTED. DOES NOT EXCLUDE THE POSSIBILITY OF EXPOSURE TO HCV. 08/23/2022 12:0 4 PM CDT Yara Lipscomb MD LABORATORY Final Result [facility] [address] [place] [address], [phone] from Last 3 Months or Most Recently Relevant to Health Maintenance Insurance [employer] [facility] Care Teams Underwater Trapper Relationship Specialty Start Date End Date Molina Cavazos MD [address] [facility] [address] [place] [id number] PCP - General INTERNAL MEDICINE 04/04/23
--- OUTSIDE RECORDS SUMMARY | 2025-02-10 08:37 | XMS_ITS | Clinical Summary ---
Author Organization [facility] Address [address] [place] [address] Care Team Providers Care Hospice Superintendent Name Role Phone Amparo Kay PA-C Primary Care Provi ne Source Comments [facility],non-owned Affiliates and Associated Physician Practices is amultiple site organization consisting of ambulatory clinics and hospital sitesin [place], [place], [place] and [place]. This disclosure is being madepursuant to the Care Everywhere program and may not contain all information available regarding this patient. Last updated 18.[facility] [employer] Allergies Active Allergy Reactions Criticality Noted Date Comments Ciprofloxacin Other Low 01/19/2017 headache Eye Drops Itching Low 11/25/2016 Does not remember name Kdc:Benzalkonium Chloride+Edetic Acid+Naphazoline+Polyethylene Glycol Itching Low 11/25/2016 Does not remember name Medications * Be aware that medications may not be up to date on this document. Alwaysverify current medications with the patient. levonorgestrel (MIRENA, 52 MG,) 20 MCG/24HR IUD 1 Each by Intrauterine route ONCE. 7 Active Active Problems Problem Noted Date Diagnosed Date Disorder of bone, unspecified 12/20/2019 Hypokalemia 11/28/2018 Overview (11/01/2019): Last Assessment & Plan: Results from last 7 days Lab Units 11/29/18 0546 11/28/18 1212 11/27/18 0516 POTASSIUM mmol/L 4.4 3.3* 3.8 K protocol K-DUR 40mEq Monitor with daily CMP Irritable bowel syndrome 11/28/2018 Overview (11/01/2019): Last Assessment & Plan: Chronic hx of abnormal bowel habits Bentyl, Reglan and Zofran recently started on previous ED visit Disorder of bone 01/19/2017 Other acquired deformity of head 01/19/2017 Acquired skull defect 01/19/2017 Skull lesion 11/25/2016 Resolved Problems Problem Noted Date Diagnosed Date Resolved Date Gastroenteritis 11/28/2018 11/15/2019 Overview (11/01/2019): Last Assessment & Plan: 3d hx of n/v, diarrhea and abd pain. Decreased PO intake. Febrile in ED T 100.8F ED: 1L bolus x 2 + Zosyn + Morphine 2mg CT Abd: Gastroenteritis Urine hCG negative CXR unremarkable WBC 17.1k UA: -nitrites, -LE, sp gravity >1.025 LA 2.1-> 0.7 CMP WNL UDS: +THC, +cocaine Lab Results Component Value Date WBC 7.7 11/29/2018 HGB 11.0 (L) 11/29/2018 HCT 31.5 (L) 11/29/2018 MCV 92.1 11/29/2018 PLT 186 11/29/2018 Plan: IVF Hydration Pain control Zofran PRN for nausea Protonix 40mg daily Clear liquid diet, advance as tolerated Immunizations Immunization Administration Dates Next Due FLU VACCINE TRI IIV3 SPLIT PF IM (FLUVIRIN) 10/2017 Family History Medical History Relation Name Comments Hyperlipidemia Father Hypertension Father Nephrolithiasis Father Asthma Mother Relation Name Status Comments Father Mother Social History Tobacco Use Types Packs/Day Years Used Date Smoking Tobacco: Some Days Cigarettes Smokeless Tobacco: Never Alcohol Use Standard Drinks/Week Comments Yes 4 (1 standard drink = 0.6 oz pur e alcohol) Comments Unknown Sex and Gender Information Value Date Recorded Sex Assigned at Not on file Legal Sex Female 5:39 PM TRANSIT MANAGER Gender Identity Not on file Sexual Orientation Not on file Last Filed Vital Signs Vital Sign Reading Time Taken Comments Blood Pressure 105/68 12/20/2019 10:04 AM TRANSIT MANAGER Pulse 68 12/20/2019 10:04 AM TRANSIT MANAGER Temperature 36.7 C (98 F) 12/20/2019 10:04 AM TRANSIT MANAGER Respiratory Rate 20 12/20/2019 10:04 AM TRANSIT MANAGER Oxygen Saturation 100% 12/20/2019 10:04 AM TRANSIT MANAGER Inhaled Oxygen Concentration - - Weight 42.2 kg (93 lb) 12/20/2019 10:04 AM TRANSIT MANAGER Height 152.4 cm (5') 12/20/2019 10:04 AM TRANSIT MANAGER Body Mass Index 18.16 12/20/2019 10:04 AM TRANSIT MANAGER Plan of Treatment Health Maintenance Due Date Last Done Comments PAP SMEAR 1997 HIV SCREENING 02/23/2012 HEPATITIS C SCREENING 02/18/2015 DTAP/TDAP/TD VACCINES (1 - Tdap) 02/23/2016 HEPATITIS B VACCINE (1 of 3 - 19+ 3-dose series) 02/23/2016 COVID-19 VACCINE (1 - 2023-2 5 season) 2024 DEPRESSION SCREENING 10/31/2024 INFLUENZA VACCINE (Season Ended) 2025 12/01/19 18 ZOSTER VACCINE (1 of 2) 2047 HIB VACCINE Aged Out No longer eligi ble based on patient's age to complete this topic HPV VACCINE Aged Out No longer eligi ble based on patient's age to complete this topic MENINGOCOCCAL (Group B) VACC INE SHARED DECISION-MAKING Aged Out No longer eligibl e based on patient's age to complete this topic MENINGOCOCCAL GROUPS A/C/Y/W VACCINE Aged Out No longer eligible b ased on patient's age to complete this topic PNEUMOCOCCAL VACCINE Aged Out No long er eligible based on patient's age to complete this topic Insurance [employer] Care Teams Hospice Superintendent Relationship Specialty Start Date End Date Amparo Kay PA-C PCP - General 12/29/17
[2025-02-10 08:46] VITALS: BP 126/99; PULSE 58; RESP 20; TEMP 36.6; O2SAT 98
--- NOTE | 2025-02-10 08:47 | ECG_ITS ---
Test Date: 2025-02-10 10:03:12 Measurements Intervals [place] Rate: 47 P: 9 MI: 122 QRS: 51 QRSD: 93 T: 31 QT: 441 QTc: 392 Interpretive Statements SINUS BRADYCARDIA BASELINE ARTIFACT- II, III, AVF ABNORMAL ECG No previous ECG available for comparison Electronically Signed On 02-10-2025 14:44:24 CDT by Soy Merrill D.O.
[2025-02-10 09:03] LABS: Basophils Absolute Auto 0.1 K/mm3 (0.0-0.1); Basophils Percent Auto 0.6 % (0.2-1.2); Hematocrit 44.9 % (37.0-47.0); Hemoglobin 15.7 g/dL (12.0-15.0); Immature Granulocyte Absolute 0.04 K/mm3 (0.00-0.031); Immature Granulocyte Percent A 0.3 % (0-0.5); Lymphocytes Percent Auto 36.1 % (18.3-44.2); Mean Corpuscular Hemoglobin 31.8 pg (26-34); Mean Corpuscular Volume 91.1 fl (80-100); Mean Platelet Volume 10.3 fl (7.4-10.4); Monocytes Absolute Auto 0.8 K/mm3 (0.1-0.6); Monocytes Percent Auto 5.8 % (2.6-8.5); Neutrophils Absolute Auto 7.8 K/mm3 (1.3-6.7); Neutrophils Percent Auto 57.2 % (45.5-73.1); Platelet Count Result 325 k/mm3 (150-375); Red Blood Count 4.93 M/mm3 (4.2-5.4); Red Cell Distribution Width 13.3 % (11.5-14.5); White Blood Count 13.6 K/mm3 (4.5-10.0)
[2025-02-10 09:05] LABS: BEDSIDEPREGUCG Negative (Negative)
[2025-02-10 09:07] LABS: Bacteria Urine Rare /hpf; Non Pathogenic Casts 0-2; RBC Urine >100 /hpf (0-2); Squamous Epithelial Cell Urine Occasional /hpf (Few)
--- OUTSIDE RECORDS SUMMARY | 2025-02-10 09:10 | XMS_ITS | Encounter Summary ---
Author Organization [facility] Address [address] [place] [address] Care Team Providers Care Fructose Loader Name Role Phone Yara Lipscomb MD Primary Care Pr ovidMolina Randall MD Primary Care Provider [phone] Encounter Details Date Type Department Care Team (Late st Contact Info) Description 10/21/2022 CrossLoop Message Enc [facility] - [address] [place] [address] Nae Devlin NP Pap Smear results Social [...] Coronavirus/COVID-19? No / Unsure 10/18/2022 11:47 AM ASSOCIATE PROFESSOR OF HISTORY documented as of this encounter Plan of Treatment Not on file documented as of this encounter Visit Diagnoses Not on filedocumented in this encounter Care Teams Fructose Loader Relationship Specialty Start Date End Date Yara Lipscomb MD PCP - General FAMILY PRACTICE 08/20/22 04/03/23 Molina Cavazos MD [address] [address] PCP - General INTERNAL MEDICINE 04/04/23 documented as of this encounter
--- OUTSIDE RECORDS SUMMARY | 2025-02-10 09:10 | XMS_ITS | Clinical Summary ---
Author Organization [facility] Address [address] [facility] [place] [address] Care Team Providers Care Wireless Technician Name Role Phone Amparo Kay PA-C Primary Care Provi ne Source Comments [facility],non-owned Affiliates and Associated Physician Practices is amultiple site organization consisting of ambulatory clinics and hospital sitesin [place], [place], [place] and [place]. This disclosure is being madepursuant to the Care Everywhere program and may not contain all information available regarding this patient. Last updated 18.[facility] [employer] Allergies Active Allergy Reactions Criticality Noted Date [...] on file Legal Sex Female 5:39 PM PIANO BENCH ASSEMBLER Gender Identity Not on file Sexual Orientation Not on file Last Filed Vital Signs Vital Sign Reading Time Taken Comments Blood Pressure 105/68 12/20/2019 10:04 AM PIANO BENCH ASSEMBLER Pulse 68 12/20/2019 10:04 AM PIANO BENCH ASSEMBLER Temperature 36.7 C (98 F) 12/20/2019 10:04 AM PIANO BENCH ASSEMBLER Respiratory Rate 20 12/20/2019 10:04 AM PIANO BENCH ASSEMBLER Oxygen Saturation 100% 12/20/2019 10:04 AM PIANO BENCH ASSEMBLER Inhaled Oxygen Concentration - - Weight 42.2 kg (93 lb) 12/20/2019 10:04 AM PIANO BENCH ASSEMBLER Height 152.4 cm (5') 12/20/2019 10:04 AM PIANO BENCH ASSEMBLER Body Mass Index 18.16 12/20/2019 10:04 AM PIANO BENCH ASSEMBLER Plan of Treatment Health Maintenance Due Date [...] patient's age to complete this topic Insurance [employer] Care Teams Wireless Technician Relationship Specialty Start Date End Date Amparo Kay PA-C PCP - General 12/29/17
--- OUTSIDE RECORDS SUMMARY | 2025-02-10 09:10 | XMS_ITS | Clinical Summary ---
Author Organization [facility] Address [address] [place] [address] Care Team Providers Care Relief Operator Name Role Phone Molina Cavazos MD Primary Care Provider [phone] Allergies Active Allergy Reactions Criticality Noted Date [...] ase 10/18/2022 Overview (10/18/2022): Father had an WI when he was 50 years old Irritable [...] Hyperlipidemia Father Hypertension Father Kidney Stones Father WI Father Asthma Mother No Known Problems Sister [...] Comments Blood Pressure 110/68 10/18/2022 11:58 AM TRACER LATHE SET UP OPERATOR Pulse 74 10/18/2022 11:58 AM TRACER LATHE SET UP OPERATOR Temperature 37.1 C (98.7 F) 10/18/2022 11:58 AM TRACER LATHE SET UP OPERATOR Respiratory Rate 16 10/18/2022 11:58 AM TRACER LATHE SET UP OPERATOR Oxygen Saturation 98% 10/18/2022 11:58 AM TRACER LATHE SET UP OPERATOR Inhaled Oxygen Concentration - - Weight 65.3 kg (144 lb) 10/18/2022 11:58 AM TRACER LATHE SET UP OPERATOR Height 156.2 cm (5' 1.5 ) 10/18/2022 11:58 AM CS T Body Mass Index 26.77 10/18/2022 11:58 AM TRACER LATHE SET UP OPERATOR Plan of Treatment Health Maintenance Due Date [...] CERV/VAG THIN LAYER Routine 10/18/2022 7:49 AM TRACER LATHE SET UP OPERATOR HEPATITIS C ANTIBODY Routine 08/23/2022 12:04 PM CDT Need for hepatitis C screening test from Last 3 Months or Most Recently Relevant to Health Maintenance Results * Cytopath Cerv/Vag Thin Layer (10/18/2022 7:49 AM TRACER LATHE SET UP OPERATOR) THIN PREP PAP [address] [phone] Department of Pathology Pathology Report CERVICAL/VAGINAL PAP SMEAR REPORT Name: EMILY STEVENS Age: 4 1995 (Age: 27) Location: [facility] Sex: F Collected Date: 10/18/2022 [facility] #: [id number] Date Received: 10/20/2022 Date Reported: 10/20/2022 Provider: [...] is not effective in detecting cervical adenocarcinoma. [facility] 10/18/2022 7:49 AM TRACER LATHE SET UP OPERATOR 10/20/2022 7:49 AM TRACER LATHE SET UP OPERATOR Comment:CERVICAL/ENDOCERVICA L us Yara Lipscomb MD PATHOLOGY/CYTOLO GY ORDERABLES Final Result [facility] [address] [place] [address], * HEPATITIS C ANTIBODY (08/23/2022 12:04 PM CDT) HEPATITIS C AB NON-REACTI VE NON-REACT KIRILL 08/23/2022 11:12 PM CDT [facility] Comment: ANTIBODIES TO HCV NOT DETECTED. DOES NOT EXCLUDE THE POSSIBILITY OF EXPOSURE TO HCV. 08/23/2022 12:0 4 PM CDT Yara Lipscomb MD LABORATORY Final Result [facility] [address] [place] [address], [id number] from Last 3 Months or Most Recently Relevant to Health Maintenance Insurance [employer] [facility] Care Teams Relief Operator Relationship Specialty Start Date End Date Molina Cavazos MD [address] [facility] [address] [place] [id number] PCP - General INTERNAL MEDICINE 04/04/23
[2025-02-10] MEDS: SODIUM CHLORIDE 0.9% IV 2,000 ML 999 ML IV CONT (09:11)
[2025-02-10 09:12] LABS: Alanine Aminotransferase 157 U/L (6-35); Albumin Level 4.5 g/dL (3.5-5.1); Alkaline Phosphatase 66 U/L (38-126); Anion Gap 13 mmol/L (4-12); Aspartate Amino Transferase 73 U/L (14-36); Blood Urea Nitrogen 9 mg/dL (7-17); Carbon Dioxide 18 mmol/L (22-30); Chloride 104 mmol/L (98-107); Estimated CRCL calculation 86 ml/min; Estimated Glomerular Filt Rate > 60; Glucose 123 mg/dL (65-110); Lipase 135 U/L (23-300); Potassium 3.8 mmol/L (3.4-5.0); Sodium 135 mmol/L (137-145)
[2025-02-10] MEDS: ONDANSETRON INJ 4 MG/2 ML VIAL IV PUSH (09:12)
[2025-02-10] MEDS: HYDROmorphone HCL INJ (*CRX) 1 MG/ML SYR IV PUSH (09:12)
[2025-02-10 09:14] LABS: Add Urine Microscopic? YES; Appearance Urine Turbid (Clear); Bilirubin Urine Negative (Negative); Blood Urine 3+ (Negative); Glucose Urine UA Negative (Negative); Ketones Urine 1+ mg/dL (Negative); Leukocyte Esterase Ur 1+ LEU/UL (Negative); Nitrate Urine Negative (Negative); Protein Urine 2+ mg/dL (Negative); Specific Grav Ur 1.026 (1.001-1.035)
[2025-02-10 09:17] LABS: Color Urine Brown (Yellow)
[2025-02-10 09:20] LABS: Atypical Lymphocytes Present; Platelet Estimate Adequate (Adequate); Schistocytes None Seen
[2025-02-10 09:34] LABS: Barbiturate Screen Urine Negative (Negative); Benzodiazepines Screen Urine Negative (Negative)
[2025-02-10 09:44] LABS: Amphetamine Screen Urine Positive (Negative); Cannabinoid Screen Urine Positive (Negative); Cocaine Screen Urine Positive (Negative); Methadone Screen Urine Negative (Negative); Opiate Screen Urine Negative (Negative); Phencyclidine Screen Urine Negative (Negative)
[2025-02-10] MEDS: ACETAMINOPHEN 500 MG TABLET 1000 MG PO (10:14)
[2025-02-10] MEDS: KETOROLAC 15 MG/ML VIAL (*BKC) IV PUSH (10:14)
[2025-02-10 10:18] VITALS: BP 109/74; PULSE 55; RESP 19; O2SAT 100
--- NOTE | 2025-02-10 10:49 | ED_ITS ---
HPI - General Adult General Chief complaint: Abdominal Pain Stated complaint: kidney stone Time Seen by Provider: 02/10/25 08:42 History of Present Illness HPI narrative: This is a 29-year-old female presenting for right-sided flank pain. Symptoms started middle of the night. She has a sharp right-sided flank pain radiating into her groin. Associated with significant pain as well as nausea and vomiting. No history of kidney stones. No fevers chills or urinary symptoms. Related Data Allergies Allergy/AdvReac Type Severity Reaction Status Date / Time ciprofloxacin Allergy Unknown Unknown Verified 02/10/25 09:06 [facility] Family History Family History Mother Asthma Social History Social History Smoking status: Former smoker Alcohol intake: current Exam 2 Narrative: APPEARANCE: Patient is rolling around the bed moaning, she is actively vomiting Head: atraumatic. EYES: EOMI, NOSE: Atraumatic NECK: Trachea midline RESPIRATORY: No increased rate of breathing clear to auscultation CARDIOVASCULAR: RRR, no peripheral edema ABDOMINAL: Non-distended soft nontender no guarding rebound no CVA tenderness MUSCULOSKELETAl: No obvious deformities NEURO: Alert. Moving 4/4 extremities SKIN:: Warm, dry. Normal color Course Vital Signs Vital signs: Vital Signs Temperature 97.9 F 02/10/25 08:46 Pulse Rate 58 L 02/10/25 08:46 Respiratory Rate 20 02/10/25 08:46 Blood Pressure 126/99 H 02/10/25 08:46 Pulse Oximetry 98 02/10/25 08:46 Oxygen Delivery Room Air 02/10/25 08:46 Temperature 97.9 F 02/10/25 08:46 Pulse Rate 55 L 02/10/25 10:18 Respiratory Rate 19 02/10/25 10:18 Blood Pressure 109/74 02/10/25 10:18 Pulse Oximetry 100 02/10/25 10:18 Oxygen Delivery Room Air 02/10/25 08:46 Medical Decision Making [facility] Narrative Medical decision making narrative: -Course: 29-year-old female presenting with right-sided flank pain nausea and vomiting. Found have a 4.5 mm stone at the UVJ. Pain was controlled in the emergency department. Urine was not indicative of infection. She has not had any dysuria urgency or frequency. No fevers chills. White count mildly elevated. Discussed admission versus discharge the patient she is comfortable going home with symptomatic treatment and course of antibiotics. Urine drug screen is positive for amphetamines cocaine and cannabinoids. -DDX includes but is not limited to: Kidney stone, cyclic vomiting -Independent interpretation of studies: Labs imaging reviewed Urine drug screen is positive for amphetamines cocaine and cannabinoids. Vital Signs Vital Signs: Vital Signs Temperature 97.9 F 02/10/25 08:46 Pulse Rate 58 L 02/10/25 08:46 Respiratory Rate 20 02/10/25 08:46 Blood Pressure 126/99 H 02/10/25 08:46 Pulse Oximetry 98 02/10/25 08:46 Oxygen Delivery Room Air 02/10/25 08:46 Temperature 97.9 F 02/10/25 08:46 Pulse Rate 55 L 02/10/25 10:18 Respiratory Rate 19 02/10/25 10:18 Blood Pressure 109/74 02/10/25 10:18 Pulse Oximetry 100 02/10/25 10:18 Oxygen Delivery Room Air 02/10/25 08:46 Lab Data 02/10/25 08:55 02/10/25 08:55 Labs: Lab Results 02/10/25 02/10/25 Range/Units 08:55 09:04 WBC 13.6 H (4.5-10.0) K/mm3 RBC 4.93 (4.2-5.4) M/mm3 Hgb 15.7 H (12.0-15.0) g/dL Hct 44.9 (37.0-47.0) % MCV 91.1 (80-100) fl MCH 31.8 (26-34) pg MCHC 35.0 (32-36) g/dl RDW 13.3 (11.5-14.5) % Plt Count 325 (150-375) k/mm3 MPV 10.3 (7.4-10.4) fl Immature Gran % (Auto) 0.3 (0-0.5) % Neut % (Auto) 57.2 (45.5-73.1) % Lymph % (Auto) 36.1 (18.3-44.2) % [place] % (Auto) 5.8 (2.6-8.5) % Eos % (Auto) 0.0 (0-4.4) % Baso % (Auto) 0.6 (0.2-1.2) % Lymph # (Auto) 4.90 H (0.9-3.2) K/mm3 [place] # (Auto) 0.8 H (0.1-0.6) K/mm3 Eos # (Auto) 0.0 (0-0.3) K/mm3 Baso # (Auto) 0.1 (0.0-0.1) K/mm3 Abs Immat Gran (auto) 0.04 H (0.00-0.031) K/mm3 Absolute Neuts (auto) 7.8 H (1.3-6.7) K/mm3 Absolute Nucleated RBC 0.000 (0.0-0.012) K/mm3 Band Neutrophils % Not Reportable Nucleated RBC % 0.0 (0.0-0.2) % Atypical Lymphocytes Present Platelet Estimate Adequate (Adequate) Schistocytes None seen Sodium 135 L (137-145) mmol/L Potassium 3.8 (3.4-5.0) mmol/L Chloride 104 (98-107) mmol/L Carbon Dioxide 18 L (22-30) mmol/L Anion Gap 13 H (4-12) mmol/L BUN 9 (7-17) mg/dL Creatinine 0.73 (0.7-1.0) mg/dL Estim Creat Clear Calc 86 ml/min Estimated GFR > 60 (59 - ) Glucose 123 H (65-110) mg/dL Calcium 9.0 (8.4-10.2) mg/dL Total Bilirubin 1.0 (0.2-1.3) mg/dL AST 73 H (14-36) U/L ALT 157 H (6-35) U/L Alkaline Phosphatase 66 (38-126) U/L Total Protein 8.0 (6.3-8.2) g/dL Albumin 4.5 (3.5-5.1) g/dL Lipase 135 (23-300) U/L Urine Color Brown H (Yellow) Urine Appearance Turbid H (Clear) Urine pH 6.0 (5.0-9.0) Ur Specific [place] 1.026 (1.001-1.035) Urine Protein 2+ H (Negative) mg/dL Urine Glucose (UA) Negative (Negative) mg/dL Urine Ketones 1+ H (Negative) mg/dL Ur Blood (Man) 3+ H (Negative) Urine Nitrate Negative (Negative) Urine Bilirubin Negative (Negative) Urine Urobilinogen 1.0 (<2.0) mg/dL Leukocyte Esterase Rfl 1+ H (Negative) JIGAR/UL Urine RBC >100 H (0-2) /hpf Urine WBC 11-20 H (0-3) /hpf Ur Squamous Epith Cells Occasional (Few) /hpf Urine Bacteria Rare /hpf Urine Casts 0-2 POC Urine HCG, Qual Negative (Negative) Urine Opiates Screen Negative (Negative) Urine Methadone Screen Negative (Negative) Ur Barbiturates Screen Negative (Negative) Ur Phencyclidine Scrn Negative (Negative) Ur Amphetamine Screen Positive A (Negative) U Benzodiazepines Scrn Negative (Negative) Urine Cocaine Screen Positive A (Negative) U Cannabinoids Screen Positive A (Negative) Discharge Plan Discharge Clinical Impression: Kidney stone Patient Disposition: Home Condition: Stable Instructions: Antibiotic Form, Kidney Stones (ED) Additional Instructions: You were seen in the emergency department for a kidney stone. Please use Motrin/Tylenol for pain. Use oxycodone for breakthrough pain. Use Flomax to help pass the stone. Use Zofran for nausea. Please follow-up with your Urologist for further management. Please return if you develop severe pain, fevers or intractable nausea and vomiting. Please refrain from using street drugs. Patient Language: Pashto Prescriptions: New ibuprofen 800 mg tablet 800 mg PO TID PRN (Reason: pain) 7 Days Qty: 21 0RF acetaminophen 500 mg tablet 1,000 mg PO TID PRN (Reason: jaymie) 7 Days Qty: 42 0RF tamsulosin [Flomax] 0.4 mg capsule 0.4 mg PO DAILY Qty: 30 0RF ondansetron 4 mg tablet,disintegrating 4 mg PO Q8H PRN (Reason: nausea and vomiting) Qty: 30 0RF oxycodone 5 mg tablet 5 mg PO Q4H PRN (Reason: pain) Qty: 14 0RF cefdinir 300 mg capsule 300 mg PO Q12H Qty: 14 0RF No Action ibuprofen 800 mg tablet 800 mg PO TID PRN (Reason: pain) 7 Days Qty: 21 0RF acetaminophen 500 mg tablet 1,000 mg PO TID PRN (Reason: jaymie) 7 Days Qty: 42 0RF ondansetron 4 mg tablet,disintegrating 4 mg PO Q8H PRN (Reason: nausea and vomiting) Qty: 30 0RF oxycodone 5 mg tablet 5 mg PO Q4H PRN (Reason: pain) Qty: 14 0RF tamsulosin [Flomax] 0.4 mg capsule 0.4 mg PO DAILY Qty: 30 0RF Follow-up/Referrals: Rustam Sales MD [Physician] - 1 Week UNKNOWN,DOCTOR [Primary Care Provider] -
[2025-02-10 11:28] VITALS: BP 102/63; PULSE 58; RESP 18; O2SAT 98
== END 2025-02-10 11:56 | disposition home or self-care (01) ==
PROVIDERS: Emergency Provider Emergency Medicine
DX: N20.0 Calculus of kidney (principal); Z87.891 Personal history of nicotine dependence; R00.1 Bradycardia, unspecified
CPT/HCPCS: 36415; 71045; 74176; 80053; 80307; 81001; 81025; 83690; 85025; 87086; 93005; 96365; 96375; 99284; A9270; J0696; J1171; J1885; J2405; J7030

== ENCOUNTER 2025-08-09 11:32 | Observation (INO) | payer OTHER, SELFPAY ==
[2025-08-09] VITALS (9 sets, daily range): BP systolic 100–130; BP diastolic 57–86; PULSE 63–98; RESP 18–24; TEMP 36.2–36.8; O2SAT 93–100; BMI 27.3
--- NOTE | ~2025-08-09 | CT_ITS ---
Exam: CT abdomen and pelvis with contrast Clinical History: [Quadrant. History of kidney stones. IBS ] Comparison: [ 02/10/2025] Technique: Multiple axial CT images of the abdomen and pelvis were obtained with IV contrast. Sagittal and coronal reformatted images were obtained. FINDINGS: Lung bases: [Clear ] Liver: [Fatty liver.No mass.] [ No intrahepatic biliary duct dilatation.] Small area of probable focal fatty infiltration in the medial segment of the left lobe of liver adjacent to the falciform ligament similar to the prior study. Gallbladder: Cholecystectomy. Common bile duct: [ Normal caliber.] [ No stones.] Spleen: [ Within normal limits.] Pancreas: [ No mass. No pancreatic fluid collection.] Adrenals: [ No masses.] Kidneys: [ No masses. No hydronephrosis.][ ] Lymph nodes: [ No adenopathy in the abdomen or pelvis.] Stomach, small bowel and colon: [ No bowel wall thickening or obstruction.] There are a few too small to characterize low-attenuation lesions in the kidneys. The tip of the appendix is thickened measuring 1.0 cm. Peritoneum cavity: [ No mesenteric fat stranding or fluid.] Bladder: [ Unremarkable.] Osseous structures: [ No acute fracture or destructive lesion.] [ Multilevel degenerative change in the visualized spine.] Abdominal aorta: [ No aneurysm.] Additional findings: [ None of significance.] IMPRESSION: 1. The tip of the appendix is thickened measuring 1.0 cm. Acute appendicitis is suspected. Reviewed, dictated and finalized at location Q.
[2025-08-09 12:07] LABS: Hematocrit 42.8 % (37.0-47.0); Hemoglobin 14.9 g/dL (12.0-15.0); Immature Granulocyte Percent A 0.6 % (0-0.5); Lymphocytes Absolute Auto 2.42 K/mm3 (0.9-3.2); Mean Corpuscular HGB Conc 34.8 g/dl (32-36); Mean Corpuscular Hemoglobin 31.5 pg (26-34); Mean Corpuscular Volume 90.5 fl (80-100); Nucleated Red Blood Cells Absolute Auto 0.000 K/mm3 (0.0-0.012); Nucleated Red Blood Cells Perc 0.0 % (0.0-0.2); Platelet Count Result 349 k/mm3 (150-375); Red Blood Count 4.73 M/mm3 (4.2-5.4); White Blood Count 14.3 K/mm3 (4.5-10.0)
[2025-08-09 12:29] LABS: Alanine Aminotransferase 27 U/L (6-35); Albumin Level 4.7 g/dL (3.5-5.1); Alkaline Phosphatase 56 U/L (38-126); Anion Gap 11 mmol/L (4-12); Aspartate Amino Transferase 31 U/L (14-36); Bilirubin,Total 0.7 mg/dL (0.2-1.3); Blood Urea Nitrogen 12 mg/dL (7-17); Calcium 9.9 mg/dL (8.4-10.2); Carbon Dioxide 22 mmol/L (22-30); Chloride 103 mmol/L (98-107); Estimated CRCL calculation 74 ml/min; Estimated Glomerular Filt Rate > 60; Glucose 90 mg/dL (65-110); Lipase 87 U/L (23-300); Potassium 3.8 mmol/L (3.4-5.0); Sodium 136 mmol/L (137-145); Total Protein 8.3 g/dL (6.3-8.2)
[2025-08-09] MEDS: chlorproMAZINE HCL INJ 50 MG/2 ML AMP IM (12:38)
[2025-08-09 12:53] LABS: BEDSIDEPREGUCG Negative (Negative)
[2025-08-09 12:57] LABS: Add Urine Microscopic? NO; Appearance Urine Clear (Clear); Glucose Urine UA Negative (Negative); Leukocyte Esterase Ur Negative LEU/UL (Negative); Nitrate Urine Negative (Negative); Specific Grav Ur 1.011 (1.001-1.035)
[2025-08-09 13:17] LABS: Cannabinoid Screen Urine Negative (Negative)
--- NOTE | 2025-08-09 13:25 | ED_ITS ---
HPI - General Adult General Chief complaint: Abdominal Pain Stated complaint: abd pain Time Seen by Provider: 08/09/25 11:50 History of Present Illness HPI narrative: This is a 30-year-old female with history of IBS, kidney stones, amphetamine and cocaine abuse presenting for right lower quadrant abdominal pain. Symptoms started at 5:00 a.m. this morning. She describes as a stabbing pain in the right lower quadrant. It is nonradiating. Pain is mild. It comes and goes. It is associated with hiccups and subjective hot flashes. Patient has never had pain like this before there are no exacerbating alleviating symptoms. She does not have nausea vomiting or diarrhea. Last bowel movement was this morning which she says was small in caliber. Patient says she last used ecstasy several days ago. Related Data Allergies Allergy/AdvReac Type Severity Reaction Status Date / Time ciprofloxacin Allergy Unknown Unknown Verified 08/09/25 12:26 [facility] Family History Family History Mother Asthma Social History Social History Smoking status: Former smoker Alcohol intake: current Exam 2 Narrative: APPEARANCE: No apparent distress. Patient is swallowing and then belching continuously which she is describing as hiccups Head: atraumatic. EYES: EOMI, NOSE: Atraumatic NECK: Trachea midline RESPIRATORY: No increased rate of breathing clear to auscultation CARDIOVASCULAR: RRR, no peripheral edema ABDOMINAL: Tenderness in the right lower quadrant without guarding or rebound no CVA tenderness MUSCULOSKELETAl: No obvious deformities NEURO: Alert. Moving 4/4 extremities SKIN:: Warm, dry. Normal color PSYCHIATRIC: Normal affect Course Vital Signs Vital signs: Vital Signs Temperature 97.6 F 08/09/25 11:45 Pulse Rate 79 08/09/25 11:45 Respiratory Rate 18 08/09/25 11:45 Blood Pressure 104/64 08/09/25 11:45 Pulse Oximetry 100 08/09/25 11:45 Oxygen Delivery Room Air 08/09/25 11:45 Temperature 97.7 F 08/09/25 11:55 Pulse Rate 78 08/09/25 11:55 Respiratory Rate 24 H 08/09/25 11:55 Blood Pressure 130/86 08/09/25 11:55 Pulse Oximetry 100 08/09/25 11:55 Oxygen Delivery Room Air 08/09/25 11:45 Medical Decision Making [facility] Narrative Medical decision making narrative: -Course: 30 - year-old female history of polysubstance use disorder presenting and right lower quadrant abdominal pain. Patient is tender on a exam of the right lower quadrant. Vital signs are stable. Patient also has hiccups (although they are somewhat atypical) and has received Thorazine IM. UDS postive for cocaine/amphetamines. White count is elevated at 14. CT shows thickening of the appendix the tip measuring 1 cm with suspicion for acute appendicitis. Patient given fluid resuscitation and antibiotics. General surgery was consulted. Given abx and fluids. Patient will be admitted for further management. -DDX includes but is not limited to: Appendicitis, ovarian torsion, colitis, kidney stone, substance use disorder, IBS -Co-morbidities complicating care: Polysubstance -Social determinants of health: Polysubstance use disorder with hx of amphetamines, cocaine,cannabinoids -External Chart Review: Review of previous ER visits Vital Signs Vital Signs: Vital Signs Temperature 97.6 F 08/09/25 11:45 Pulse Rate 79 08/09/25 11:45 Respiratory Rate 18 08/09/25 11:45 Blood Pressure 104/64 08/09/25 11:45 Pulse Oximetry 100 08/09/25 11:45 Oxygen Delivery Room Air 08/09/25 11:45 Temperature 97.7 F 08/09/25 11:55 Pulse Rate 78 08/09/25 11:55 Respiratory Rate 24 H 08/09/25 11:55 Blood Pressure 130/86 08/09/25 11:55 Pulse Oximetry 100 08/09/25 11:55 Oxygen Delivery Room Air 08/09/25 11:45 Lab Data 08/09/25 12:00 08/09/25 12:00 Labs: Lab Results 08/09/25 08/09/25 08/09/25 Range/Units 12:00 12:50 12:51 WBC 14.3 H (4.5-10.0) K/mm3 RBC 4.73 (4.2-5.4) M/mm3 Hgb 14.9 (12.0-15.0) g/dL Hct 42.8 (37.0-47.0) % MCV 90.5 (80-100) fl MCH 31.5 (26-34) pg MCHC 34.8 (32-36) g/dl RDW 12.6 (11.5-14.5) % Plt Count 349 (150-375) k/mm3 MPV 9.8 (7.4-10.4) fl Immature Gran % (Auto) 0.6 H (0-0.5) % Neut % (Auto) 77.8 H (45.5-73.1) % Lymph % (Auto) 16.9 L (18.3-44.2) % [place] % (Auto) 4.1 (2.6-8.5) % Eos % (Auto) 0.3 (0-4.4) % Baso % (Auto) 0.3 (0.2-1.2) % Lymph # (Auto) 2.42 (0.9-3.2) K/mm3 [place] # (Auto) 0.6 (0.1-0.6) K/mm3 Eos # (Auto) 0.0 (0-0.3) K/mm3 Baso # (Auto) 0.0 (0.0-0.1) K/mm3 Abs Immat Gran (auto) 0.08 H (0.00-0.031) K/mm3 Absolute Neuts (auto) 11.1 H (1.3-6.7) K/mm3 Absolute Nucleated RBC 0.000 (0.0-0.012) K/mm3 Nucleated RBC % 0.0 (0.0-0.2) % Sodium 136 L (137-145) mmol/L Potassium 3.8 (3.4-5.0) mmol/L Chloride 103 (98-107) mmol/L Carbon Dioxide 22 (22-30) mmol/L Anion Gap 11 (4-12) mmol/L BUN 12 (7-17) mg/dL Creatinine 0.85 (0.7-1.0) mg/dL Estim Creat Clear Calc 74 ml/min Estimated GFR > 60 (59 - ) Glucose 90 (65-110) mg/dL Calcium 9.9 (8.4-10.2) mg/dL Total Bilirubin 0.7 (0.2-1.3) mg/dL AST 31 (14-36) U/L ALT 27 (6-35) U/L Alkaline Phosphatase 56 (38-126) U/L Total Protein 8.3 H (6.3-8.2) g/dL Albumin 4.7 (3.5-5.1) g/dL Lipase 87 (23-300) U/L Urine Color Yellow (Yellow) Urine Appearance Clear (Clear) Urine pH 7.5 (5.0-9.0) Ur Specific [place] 1.011 (1.001-1.035) Urine Protein Negative (Negative) mg/dL Urine Glucose (UA) Negative (Negative) mg/dL Urine Ketones Negative (Negative) mg/dL Ur Blood (Man) Negative (Negative) Urine Nitrate Negative (Negative) Urine Bilirubin Negative (Negative) Urine Urobilinogen 0.2 (<2.0) mg/dL Leukocyte Esterase Rfl Negative (Negative) JIGAR/UL POC Urine HCG, Qual Negative (Negative) Urine Opiates Screen Negative (Negative) Urine Methadone Screen Negative (Negative) Ur Barbiturates Screen Negative (Negative) Ur Phencyclidine Scrn Negative (Negative) Ur Amphetamine Screen Positive A (Negative) U Benzodiazepines Scrn Negative (Negative) Urine Cocaine Screen Positive A (Negative) U Cannabinoids Screen Negative (Negative) Discharge Plan Discharge Clinical Impression: Acute appendicitis, Amphetamine abuse, Cocaine abuse, Hiccup Patient Disposition: Home Condition: Stable Instructions: Antibiotic Form Patient Language: Bangladeshi Prescriptions: No Action ibuprofen 800 mg tablet 800 mg PO TID PRN (Reason: pain) 7 Days Qty: 21 0RF acetaminophen 500 mg tablet 1,000 mg PO TID PRN (Reason: jaymie) 7 Days Qty: 42 0RF ondansetron 4 mg tablet,disintegrating 4 mg PO Q8H PRN (Reason: nausea and vomiting) Qty: 30 0RF oxycodone 5 mg tablet 5 mg PO Q4H PRN (Reason: pain) Qty: 14 0RF tamsulosin [Flomax] 0.4 mg capsule 0.4 mg PO DAILY Qty: 30 0RF ibuprofen 800 mg tablet 800 mg PO TID PRN (Reason: pain) 7 Days Qty: 21 0RF acetaminophen 500 mg tablet 1,000 mg PO TID PRN (Reason: jaymie) 7 Days Qty: 42 0RF tamsulosin [Flomax] 0.4 mg capsule 0.4 mg PO DAILY Qty: 30 0RF ondansetron 4 mg tablet,disintegrating 4 mg PO Q8H PRN (Reason: nausea and vomiting) Qty: 30 0RF oxycodone 5 mg tablet 5 mg PO Q4H PRN (Reason: pain) Qty: 14 0RF cefdinir 300 mg capsule 300 mg PO Q12H Qty: 14 0RF Follow-up/Referrals: PHYSICIAN,OLIVING MACHINE OPERATOR [Primary Care Provider, Internal Medicine]
[2025-08-09] MEDS: LACTATED RINGERS 1,000 ML 999 ML IV CONT ×2 (14:45→14:46)
[2025-08-09] MEDS: PIPERACILLIN/TAZOBACTAM SOD 3.375 GM in SODIUM CHLORIDE 0.9% IV 50 ML 100 ML IVPB ×2 (14:45→22:48)
--- NOTE | 2025-08-09 14:59 | PC.NURSE ---
IV fluids and antibiotics running per order on admission
--- NOTE | 2025-08-09 15:27 | ADMGEN ---
This patient, Emily Stevens, was admitted to 2 Medical Room 255-. Patient/family oriented to hospital policies and general routines including ID bracelet, bed and alarms, visiting hours, pain management, procedures, bathroom and other care routines, personal items, smoking policy, room service/diet, and visiting hours. Information on how to activate the Rapid Response Team has been discussed. Patient/Family are encouraged to report perceived risks to care and to ask questions if they do not understand what they are told or what they should do.
--- NOTE | 2025-08-09 15:46 | PM.IMHP ---
H&P: HPI History of Present Illness Date/Time: 08/09/25 15:46 Chief Complaint: Abdominal pain Narrative: Patient is a 30-year-old female with history of IBS, kidney stones, amphetamine and cocaine abuse who we have been asked to see in surgical consultation for appendicitis. Patient 1st started noticing diffuse abdominal pain that started around 8:00 a.m. this morning. She was able to go to work but noticed that pain was increasing in severity and localizing to her right lower quadrant. Denies any nausea or vomiting. States she had a very small bowel movement today. She decided to present to [place] the ED. Upon arrival vital signs were stable. Labs revealed a white blood cell count of 14.3. CT of the abdomen and pelvis was performed and demonstrated the tip of the appendix to be thickened to 1.0 cm with acute appendicitis suspected. Patient was started on Zosyn. General surgery team was consulted at this time. Upon interview, patient complains of right lower quadrant abdominal pain. Abdominal surgical history includes laparoscopic cholecystectomy. States she ate a Rees[employer] peanut butter cup around 11:00 a.m. PMFSH Family History Family History Mother Asthma Social History Social History Years smoked: 14 Smoking status: Current every day smoker Tobacco type: e-cigarettes/vaping Alcohol intake: current Drinks per week: 5 Substance use: current Substance use type: marijuana and crack/cocaine Lack of Transportation: No Lack of Food: Never True Current Housing: I Have Housing Concerned About Future Housing: No Difficulty Paying Gas/Electric Bills: No Difficulty Paying for Meds: No Currently Unemployed: No Education: Trade/Vocational Certificate Difficulty w/ Childcare or Family Care: No Spiritual care concerns: No Meds Home Medications and Allergies Home Medications ?Medication ?Instructions ?Recorded ?Confirmed ?Type acetaminophen 500 mg tablet 1,000 mg (2 x 500 mg) PO TID PRN 07/02/24 Rx jaymie 7 days #42 tabs ibuprofen 800 mg tablet 800 mg PO TID PRN pain 7 days #21 07/02/24 Rx tabs ondansetron 4 mg disintegrating 4 mg PO Q8H PRN nausea and 07/02/24 Rx tablet vomiting #30 tabs oxycodone 5 mg tablet 5 mg PO Q4H PRN pain #14 tabs 07/02/24 Rx tamsulosin 0.4 mg capsule (Flomax) 0.4 mg PO DAILY #30 caps 07/02/24 Rx acetaminophen 500 mg tablet 1,000 mg (2 x 500 mg) PO TID PRN 02/10/25 Rx jaymie 7 days #42 tabs cefdinir 300 mg capsule 300 mg PO Q12H #14 caps 02/10/25 Rx ibuprofen 800 mg tablet 800 mg PO TID PRN pain 7 days #21 02/10/25 Rx tabs ondansetron 4 mg disintegrating 4 mg PO Q8H PRN nausea and 02/10/25 Rx tablet vomiting #30 tabs oxycodone 5 mg tablet 5 mg PO Q4H PRN pain #14 tabs 02/10/25 Rx tamsulosin 0.4 mg capsule (Flomax) 0.4 mg PO DAILY #30 caps 02/10/25 Rx Allergies Allergy/AdvReac Type Severity Reaction Status Date / Time ciprofloxacin Allergy Unknown Unknown Verified 08/09/25 12:26 Vital Signs Vital Signs - 24 hr 08/09/25 11:45 08/09/25 11:55 08/09/25 14:47 Temperature 97.6 F 97.7 F Pulse Rate 79 78 73 Respiratory Rate 18 24 H 18 Blood Pressure 104/64 130/86 100/72 Pulse Oximetry 100 100 97 Oxygen Delivery Room Air Exam Const: General: comfortable and no acute distress Eyes: General: appearance normal, both eyes and all related structures Neck: Neck: supple and no JVD Resp: Effort & Inspection: normal respiratory effort Cardio: Rate: regular rate GI: Inspection: non-distended GI Palp: Yes Soft to palpation and Yes Tenderness to palpation present (GI) (Right lower quadrant) Auscultation: normal bowel sounds Skin: General skin exam: normal color and no rashes or lesions noted H&P: Results Labs Labs: Short CBC 08/09/25 Range/Units 12:00 WBC 14.3 H (4.5-10.0) K/mm3 Hgb 14.9 (12.0-15.0) g/dL Hct 42.8 (37.0-47.0) % Plt Count 349 (150-375) k/mm3 [facility] 08/09/25 12:00 Sodium 136 L Potassium 3.8 Chloride 103 Carbon Dioxide 22 BUN 12 Creatinine 0.85 Glucose 90 Calcium 9.9 Liver Function 08/09/25 Range/Units 12:00 Total Bilirubin 0.7 (0.2-1.3) mg/dL AST 31 (14-36) U/L ALT 27 (6-35) U/L Alkaline Phosphatase 56 (38-126) U/L Albumin 4.7 (3.5-5.1) g/dL Urine 08/09/25 Range/Units 12:50 Urine Color Yellow (Yellow) Urine Appearance Clear (Clear) Urine pH 7.5 (5.0-9.0) Ur Specific [place] 1.011 (1.001-1.035) Urine Protein Negative (Negative) mg/dL Urine Glucose (UA) Negative (Negative) mg/dL Assessment and Plan Assessment and plan (1) Acute appendicitis: Code(s): K35.80 - Unspecified acute appendicitis Status: Acute Assessment and Plan: Patient presented today with right lower quadrant pain that started earlier this morning around 8:00 a.m.. No associated nausea or vomiting. Upon admission to the ED, labs revealed leukocytosis of 14.3. CT imaging demonstrated a thickened appendix tip at 1.0 cm, likely appendicitis. Patient was admitted to medical-surgical floor. Currently receiving IV Zosyn. Patient will undergo laparoscopic appendectomy this evening. Risks, benefits, and alternatives discussed with the patient. She is agreeable to proceed with surgery. Patient should remain NPO. Continue IV fluids, pain management, and antibiotics. Plan Discussed patient's case and plan of care with Dr. Galeas.
--- NOTE | 2025-08-09 16:15 | PC.NURSE ---
LR bolus from ER running to gravity at the time patient arrived to floor, will allow to infuse then will start LR at 125 per patient
[2025-08-09] MEDS: MORPHINE SULFATE (*CRX) 4 MG/ML INJ 2 MG IV PUSH (16:20)
--- NOTE | 2025-08-09 18:15 | PC.NURSE ---
To OR per wheelchair, IV LAC. Report given.
[2025-08-09] MEDS: LACTATED RINGERS 1,000 ML 30 ML IV CONT ×3 (18:39→23:25)
[2025-08-09] MEDS: ACETAMINOPHEN 500 MG TABLET 1000 MG PO (18:43)
[2025-08-09] MEDS: KETOROLAC 15 MG/ML VIAL (*BKC) IV PUSH (18:43)
[2025-08-09] MEDS: FAMOTIDINE 20 MG/2 ML VIAL IV PUSH (18:56)
--- NOTE | 2025-08-09 21:25 | P.PNAN_ITS ---
Anes - Initial Pre Proc Eval Procedure: Operation Date: 08/09/25 18:00 Proposed Procedures p Laparoscopic Appendectomy - Jae Galeas DO Date/Time: 08/09/25 21:25 Surgeon: Jae Galeas DO Pre Op Diagnosis: Appendicitis Patient Data Age: 30 Gender: F Height: 1.55 m Weight: 65.6 kg Last Vital Signs Temp 98.2 F 08/09/25 20:23 Pulse 98 08/09/25 20:23 Resp 18 08/09/25 20:23 BP 121/72 08/09/25 20:23 Pulse Ox 93 08/09/25 20:23 O2 Del Method Room Air 08/09/25 18:15 Allergies Allergy/AdvReac Type Severity Reaction Status Date / Time ciprofloxacin Allergy Unknown Unknown Verified 08/09/25 18:59 Home Medications ?Medication ?Instructions ?Recorded ?Confirmed ?Type No Home Medications 08/09/25 08/09/25 H istory Laboratory Tests 08/09/25 08/09/25 08/09/25 12:00 12:50 12:51 WBC 14.3 H K/mm3 (4.5-10.0) RBC 4.73 M/mm3 (4.2-5.4) Hgb 14.9 g/dL (12.0-15.0) Hct 42.8 % (37.0-47.0) MCV 90.5 fl (80-100) MCH 31.5 pg (26-34) MCHC 34.8 g/dl (32-36) RDW 12.6 % (11.5-14.5) Plt Count 349 k/mm3 (150-375) MPV 9.8 fl (7.4-10.4) Immature Gran % (Auto) 0.6 H % (0-0.5) Neut % (Auto) 77.8 H % (45.5-73.1) Lymph % (Auto) 16.9 L % (18.3-44.2) [place] % (Auto) 4.1 % (2.6-8.5) Eos % (Auto) 0.3 % (0-4.4) Baso % (Auto) 0.3 % (0.2-1.2) Lymph # (Auto) 2.42 K/mm3 (0.9-3.2) [place] # (Auto) 0.6 K/mm3 (0.1-0.6) Eos # (Auto) 0.0 K/mm3 (0-0.3) Baso # (Auto) 0.0 K/mm3 (0.0-0.1) Abs Immat Gran (auto) 0.08 H K/mm3 (0.00-0.031) Absolute Neuts (auto) 11.1 H K/mm3 (1.3-6.7) Absolute Nucleated RBC 0.000 K/mm3 (0.0-0.012) Nucleated RBC % 0.0 % (0.0-0.2) Sodium 136 L mmol/L (137-145) Potassium 3.8 mmol/L (3.4-5.0) Chloride 103 mmol/L (98-107) Carbon Dioxide 22 mmol/L (22-30) Anion Gap 11 mmol/L (4-12) BUN 12 mg/dL (7-17) Creatinine 0.85 mg/dL (0.7-1.0) Estim Creat Clear Calc 74 ml/min Estimated GFR > 60 (59 - ) Glucose 90 mg/dL (65-110) Calcium 9.9 mg/dL (8.4-10.2) Total Bilirubin 0.7 mg/dL (0.2-1.3) AST 31 U/L (14-36) ALT 27 U/L (6-35) Alkaline Phosphatase 56 U/L (38-126) Total Protein 8.3 H g/dL (6.3-8.2) Albumin 4.7 g/dL (3.5-5.1) Lipase 87 U/L (23-300) Urine Color Yellow (Yellow) Urine Appearance Clear (Clear) Urine pH 7.5 (5.0-9.0) Ur Specific [place] 1.011 (1.001-1.035) Urine Protein Negative mg/dL (Negative) Urine Glucose (UA) Negative mg/dL (Negative) Urine Ketones Negative mg/dL (Negative) Ur Blood (Man) Negative (Negative) Urine Nitrate Negative (Negative) Urine Bilirubin Negative (Negative) Urine Urobilinogen 0.2 mg/dL (<2.0) Leukocyte Esterase Rfl Negative JIGAR/UL (Negative) POC Urine HCG, Qual Negative (Negative) Urine Opiates Screen Negative (Negative) Urine Methadone Screen Negative (Negative) Ur Barbiturates Screen Negative (Negative) Ur Phencyclidine Scrn Negative (Negative) Ur Amphetamine Screen Positive A (Negative) U Benzodiazepines Scrn Negative (Negative) Urine Cocaine Screen Positive A (Negative) U Cannabinoids Screen Negative (Negative) Patient hx anesthesia problems: none Family hx anesthesia problems: none Results Review: All pre-operative results and documents have been reviewed as part of the pre- operative evaluation. PMFSH Family History Family History Mother Asthma Social History Social History Years smoked: 14 Smoking status: Current every day smoker Tobacco type: e-cigarettes/vaping Alcohol intake: current Drinks per week: 5 Substance use: current Substance use type: marijuana and crack/cocaine Lack of Transportation: No Lack of Food: Never True Current Housing: I Have Housing Concerned About Future Housing: No Difficulty Paying Gas/Electric Bills: No Difficulty Paying for Meds: No Currently Unemployed: No Education: Trade/Vocational Certificate Difficulty w/ Childcare or Family Care: No Spiritual care concerns: No Anes - Eval Final PreProcedure Day of Procedure 08/09/25 21:25 Patient weight: overweight Lungs: normal air movement Airway: Mallampati scale class II and special considerations (Upper and lower perm retainers. ) Neurological: alert and oriented Last oral intake: >/= 8 hours ASA classification: III Emergent: yes Anesthetic plan: proceed Anesthesia type and monitoring: general ETT and standard monitoring Results Review: All pre-operative results and documents have been reviewed as part of the pre- operative evaluation. Pt for acute appy. 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 Pt reports cannabis uses multiple times per week. Urine tox screen noted, pt denies IV drug use/abuse. Informed Consent: The patient's anesthetic plan and its attendant risks and benefits were discus sed with the patient/family/POA. Questions were solicited and answers provided to the satisfaction of the patient/family/POA.
--- NOTE | 2025-08-09 22:28 | WPDHPUPDATE1 ---
History and Physical Update Update Date/Time: 08/09/25 22:28 History and Physical has been reviewed, including an updated exam of the patient. There are NO changes in the patient's condition. Risks, benefits, and alternatives have been discussed and questions answered. Patient agrees to proceed with procedure.
[2025-08-09] MEDS: BUPIVACAINE/EPINEPHRINE 0.5% 50 ML VIAL 30 ML INFILTRATE (22:54)
--- NOTE | 2025-08-09 23:02 | S_PTH ---
PATIENT: Emily Stevens LOC: [id number] U#:[id number] AGE/SX: 30/F ROOM: 255 RE08/09/[address]: Jae Galeas DO : 1995 BED: 01 DIS: 08/10/2025 SPEC #: [id number] RECD: 08/12/25 08:56 STATUS: LYNN REQ #: [id number] TINY: 08/09/25 23:[address]: Jae Galeas DEPT: [facility] Surgical RECD BY: Latrice Diane ENTERED: 08/12/25 08:56 SP TYPE: Surgical OTHR DR: Lexa Mejia, DO Fercho Corral MD MANAGER DOCUMENTATION PHYSICIAN Lupis Ying PA-C Tissues: A - Appendix Procedures: Hematoxylin and Eosin Stain Gross and Microscopic Level 3
--- NOTE | 2025-08-09 23:25 | P.OP_ITS ---
Procedure Note - Detailed Date of Procedure 08/09/25 Pre-op Diagnosis Appendicitis Post-op Diagnosis Same Procedure Performed Laparoscopic appendectomy Surgeon Jae Galeas, DO Anesthesia General and Local (0.5% bupivicaine with epinephrine) Indications This is a 30-year-old woman who presented to the emergency department with right lower quadrant pain that started this morning. Her pain was progressively worsening and she then presented to the ED. CT showed evidence of acute appendicitis she had an elevated white blood count. She was started on IV antibiotics and was placed in observation. Discussions were made with the patient about treatment options and decision was made to proceed with laparo scopic appendectomy possible open. Findings Laparoscopic appendectomy was performed. The appendix appeared dilated and indurated. The tip of the appendix appeared to be where a majority of the inflammation was noted. There is no clear evidence of perforation or abscess but there was some reactive fluid around the appendix and in the pelvis. The base of the appendix appeared healthy and viable. The appendix was removed and sent to the lab for pathology. Description of Procedure Procedure as well as risks, benefits, and alternatives were explained to the patient. The patient agreed to proceed. Written consent was obtained and placed in chart prior to procedure. The patient was brought back to surgical suite. She was placed supine on operating table. Time-out was done to confirm the patient and procedure. The patient was then intubated by the Anesthesia Department. Her abdomen was prepped and draped in sterile fashion using chlorhexidine prep. A 5 mm incision was made just to the left of the patient's umbilicus and a 5 mm Optiview trocar was advanced through the abdominal layers under direct visualization. Once inside the peritoneal cavity, carbon dioxide insufflation was used to create a pneumoperitoneum. The camera was inserted and the abdomen was inspected. No immediate abnormalities were identified. The patient was then placed in slight Trendelenburg position and rotated to the left. A 5 mm incision was made in the suprapubic region in midline and a 5 mm trocar was inserted under direct visualization. A 12 mm incision was made in the left lower quadrant and a 12 mm trocar was inserted under direct visualization. The right lower quadrant was carefully inspected. The cecum was identified and then this was traced back to the appendix. The appendix was identified and grasped at the mesoappendix and lifted anteriorly. Careful blunt dissection was carried out at the base of the appendix through the mesoappendix using a [place] grasper. An Endo-ELAN 45 mm blue load stapler was then advanced across the base of the appendix and clamped and fired. A white reload was then clamped across the mesoappendix and fired. This freed up our appendix completely. It was then placed in an EndoCatch bag and removed through the left lower quadrant port. The staple lines were then inspected. Hemostasis appeared adequate and the staple lines appeared secure. The area was then irrigated with sterile saline. The pelvis was then carefully inspected and irrigated with sterile saline as well and the remainder of the abdomen was carefully inspected. The patient was then flattened out in bed. One final inspection was made around the abdominal cavity and no other abnormalities were seen. The left lower quadrant port was removed and a Eladio-Leigh cone was used to approximate the fascia with an 0 Vicryl simple interrupted suture. The remaining ports were then removed under direct visualization. The camera was removed and the pneumoperitoneum was released. 0.5% bupivacaine with epinephrine was infiltrated locally around each of the incisions. The skin of the incisions was then approximated using 4-0 Monocryl subcuticular suture and Exofin glue was applied on top. The patient was then awakened from anesthesia, extubated, and transferred to Recovery. Estimated Blood Loss 10 Urine Output 300 Pathology Yes (Appendix) Complications No immediate complications Condition Stable Disposition Observation [facility] Billing Surgery - Charge Forward: Surgery Billing
[2025-08-10] VITALS (9 sets, daily range): BP systolic 92–116; BP diastolic 59–72; PULSE 49–80; RESP 13–16; TEMP 36.1–36.4; O2SAT 95–100
[2025-08-10] MEDS: LACTATED RINGERS 1,000 ML 100 ML IV CONT (01:15)
[2025-08-10] MEDS: MORPHINE SULFATE (*CRX) 4 MG/ML INJ IV PUSH (01:18)
[2025-08-10] MEDS: ONDANSETRON INJ 4 MG/2 ML VIAL IV PUSH (01:25)
--- NOTE | 2025-08-10 01:31 | PC.NURSE ---
Patient returned from surgery 0100 for an appendectomy. 3 lap sites noted to abdomen, glue intact. Patient guarding rates pain 8/10. administered PRN dose Morphine 4mg. AOx4, currently drowsy but arouse to verbal commands. T97.6, P80, R16, O2 100%, 116/72
[2025-08-10] MEDS: PIPERACILLIN/TAZOBACTAM SOD 3.375 GM in SODIUM CHLORIDE 0.9% IV 50 ML 100 ML IVPB ×2 (02:01→08:55)
[2025-08-10 05:10] LABS: Hematocrit 36.6 % (37.0-47.0); Hemoglobin 12.3 g/dL (12.0-15.0); Mean Corpuscular HGB Conc 33.6 g/dl (32-36); Mean Corpuscular Hemoglobin 31.2 pg (26-34); Mean Corpuscular Volume 92.9 fl (80-100); Platelet Count Result 258 k/mm3 (150-375); Red Blood Count 3.94 M/mm3 (4.2-5.4); White Blood Count 8.3 K/mm3 (4.5-10.0)
[2025-08-10] MEDS: HYDROcodone/acetaminophen (*CRX) 10-325 MG TABLET 1 TAB PO ×2 (05:13→12:10)
[2025-08-10 05:36] LABS: Anion Gap 5 mmol/L (4-12); Blood Urea Nitrogen 9 mg/dL (7-17); Calcium 8.3 mg/dL (8.4-10.2); Carbon Dioxide 23 mmol/L (22-30); Chloride 105 mmol/L (98-107); Estimated CRCL calculation 89 ml/min; Estimated Glomerular Filt Rate > 60; Glucose 126 mg/dL (65-110); Potassium 4.0 mmol/L (3.4-5.0); Sodium 133 mmol/L (137-145)
[2025-08-10] MEDS: FAMOTIDINE 20 MG TABLET PO (12:02)
--- NOTE | 2025-08-10 13:51 | P.DS_ITS ---
DS: Admitting Diagnosis Discharge Date 08/10/2025 Admitting Diagnosis Acute appendicitis DS: Discharge Diagnosis Discharge Diagnosis (1) Acute appendicitis: Qualifiers: Acute appendicitis type: with localized peritonitis Appendicitis gangrene presence: without gangrene Appendicitis perforation presence: without perforation Appendicitis abscess presence: without abscess Qualified Code(s): K35.30 - Acute appendicitis with localized peritonitis, without perforation or gangrene Code(s): K35.80 - Unspecified acute appendicitis Status: Acute (2) Amphetamine abuse: Code(s): F15.10 - Other stimulant abuse, uncomplicated Status: Acute (3) Cocaine abuse: Code(s): F14.10 - Cocaine abuse, uncomplicated Status: Acute DS: Summary Hospital Course Reason for hospitalization: Acute appendicitis Hospital Course: This is a 30-year-old woman who presented to the emergency department on 08/09/2025 with right lower quadrant pain that started earlier in the morning. She had an elevated white blood count and CT showed evidence of distal appendicitis. She was started on broad-spectrum IV antibiotics and placed in observation. She then underwent laparoscopic appendectomy on 08/09/2025. The appendix was severely indurated and dilated, but there was no definite site of perforation. She was returned to the surgical floor postoperatively and diet and activity were advanced as tolerated. She remained on Zosyn postoperatively. On postop day 1 her pain control was improved and she was tolerating her diet. She was getting up out of bed with minimal assistance. She remained hemodynamically stable. She was then discharged on 08/10/2025. Status at Discharge Functional status at discharge: independent ambulation Overall status at discharge: patient is progressing back to baseline Time Spent with Patient Time attestation: Total time spent providing and/or coordinating discharge services: Time spent: Less than 30 minutes Exam Const: General: comfortable and no acute distress Resp: Effort & Inspection: normal respiratory effort Auscultation: clear to auscultation bilaterally Cardio: Rate: regular rate Rhythm: regular rhythm Heart sounds: S1 normal heart sound present and S2 normal heart sound present GI: Inspection: non-distended and incision (Intact with glue) GI Palp: Yes Soft to palpation, Yes Tenderness to palpation present (GI) (Incisional) and No Guarding due to palpation present (GI) Auscultation: normal bowel sounds DS: Data Data Completed and Pending Pending studies at discharge: Pending at discharge 08/09/25 23:02 Surgical [PTH] Routine Labs on day of discharge: Labs from last 24 hours 08/10/25 04:40 WBC 8.3 RBC 3.94 L Hgb 12.3 Hct 36.6 L MCV 92.9 MCH 31.2 MCHC 33.6 RDW 12.6 Plt Count 258 MPV 10.2 Sodium 133 L Potassium 4.0 Chloride 105 Carbon Dioxide 23 Anion Gap 5 BUN 9 Creatinine 0.70 Estim Creat Clear Calc 89 Estimated GFR > 60 Glucose 126 H Calcium 8.3 L Discharge Plan Discharge Attending physician on discharge: Jae Fairchild Consulting providers: Fercho Rodas Discharging Clinician: Jae Fairchild Patient Disposition: Home Activity: other - see discharge instructions Diet: regular Wound Care Instructions: other - see discharge instructions Discharge Instructions: DISCHARGE INSTRUCTION SHEET FOR HERNIA, GALLBLADDER AND APPENDIX SURGERIES DR. FAIRCHILD PATIENT TO TAKE HOME 1. May shower, no soaking in bath x 2weeks. 2. Call office for: * Wound increasingly painful or bleeding * Vomiting * Fever of greater than 101 degrees 3. If no bowel movement for three days, take 1 oz. (30 ml) Milk of Magnesia or MiraLax 17g 1 to 2 times daily. 4. No heavy lifting > 10-15 pounds x 2 weeks for laparoscopic cholecystectomy or appendectomy. 5. No driving for 3 days or while taking narcotic pain medications. 6. Ice to surgical site for 48 hours (30 min on, then 30 min off). 7. Up walking 10-30 minutes three times per day. 8. Resume previous home medications. 9. Follow-up 10-14 days in office for wound check or as previously scheduled. ([phone]) 10. Oral pain medications prescription to be sent to pharmacy. Take Tylenol 500mg every 6 hours and Ibuprofen 600mg every 6 hours for the first 2 days, then as needed. 11. NUTRITION: Start out by drinking fluids and increase your diet as tolerated. If you experience nausea, try dry toast, crackers, and 7-UP. If nausea or vomiting persists, contact your surgeon?s office. 12. Gallbladders-Low Fat Diet for 2 weeks (send care note of low fat diet) 13. Inguinal Hernias-wear scrotal support for 48 hours 14. Abdominal Hernias-if sent home with abdominal binder, wear for the first 2 weeks (may remove to shower or at night to sleep). Revised February 2019 Patient Instructions: Antibiotic Form, Opioid Safety (DC) Patient Language: Khmer Stand Alone Forms: General Discharge Information, Work/School Release IP Follow-up/Referrals: Jae Fairchild DO [Physician, General Surgery] - 3 Weeks Discharge Medications: New hydrocodone-acetaminophen 5-325 mg tablet 1 - 2 tablet PO Q4H PRN (Reason: pain) Qty: 10 0RF amoxicillin-pot clavulanate 875-125 mg tablet 1 tablet PO Q12H 5 Days Qty: 10 0RF Date of admission: 08/09/25 15:03 Primary Care Provider: PHYSICIAN,PACKING FLOOR WORKER Admitting Provider: Jae Fairchild Attending physician on admission: Jae Fairchild Condition: Improved
== END 2025-08-10 15:30 | disposition home or self-care (01) ==
LOC: ANHED 14:43 → ANH2MED 15:11
PROVIDERS: Admitting Provider Surgery; Emergency Provider Emergency Medicine; Visit Provider Surgery
PROC: 0DTJ4ZZ Resection of Appendix, Percutaneous Endoscopic Approach (ICD-10-PCS; CPT 44970; principal; 2025-08-09 18:00)
DX: K35.30 Acute appendicitis with localized peritonitis, without perforation or gangrene (principal); F19.90 Other psychoactive substance use, unspecified, uncomplicated; K58.9 Irritable bowel syndrome, unspecified; F17.290 Nicotine dependence, other tobacco product, uncomplicated; Z87.442 Personal history of urinary calculi; Z82.5 Family history of asthma and other chronic lower respiratory diseases; Z79.1 Long term (current) use of non-steroidal anti-inflammatories (NSAID); Z79.899 Other long term (current) drug therapy; Z79.891 Long term (current) use of opiate analgesic
CPT/HCPCS: 44970; 36415; 74177; 80048; 80053; 80307; 81003; 81025; 83690; 85025; 85027; 87040; 88304; 96372; 96374; 99285; A9270; G0378; J0330; J1100; J1885; J2003; J2250; J2270; J2405; J2543; J2704; J3010; J3230; J7030; J7120; Q9967